=== PATIENT | female | born 1930 | race Hispanic/Latino ===

== ENCOUNTER 2016-09-09 15:50 | Emergency (ER) | payer MEDICARE, MEDICAID ==
[~2016-09-09] VITALS: Ht 157.5 cm; Wt 73.6 kg
[~2016-09-09 15:50] MED LIST: AMLO2.5T PO; AMLO5TAB2 PO; ASPI-973 PO; ATOR80TA77 PO; FAMO20TA4 PO; FUR20 PO; IRON SULFATE PO; LISI10TA PO; METO25TA99 PO; POTA10TA12 PO
[2016-09-09 16:04] VITALS: BP 121/54; PULSE 51; RESP 16; O2SAT 97
--- NOTE | 2016-09-09 16:35 | ED.REPORT ---
HPI-Extremity Problem Lower Date of Service Sep 09, 2016 ED Provider: Dr. Elvis Cano MD An 86 year old female with a history of aortic stenosis, anemia, hyperlipidemia , CAD, hypertension, CHF, GERD and arthritis presents to the ED complaining of right foot pain that began 3 days ago. Patient was seen at Urgent Care 2 days ago. The pain is exacerbated when the patient lays down and when she walks. Patient has been unable to sleep because of the pain. Associated symptoms include dizziness, headache and nausea. The pain medication has provided little relief. Nursing Notes Stated Complaint: FOOT PAIN/SEEN [facility] SUNDAY Chief Complaint: Extremity Trauma Nursing Notes Reviewed: Yes Allergies: Coded Allergies: No Known Allergies (Verified Allergy, Unknown, 02/06/16) Scheduled ([Iron Sulfate]) 325 MG PO BID Amlodipine (Amlodipine) 2.5 Mg Tablet 2.5 MG PO DAILY Amlodipine (Amlodipine) 5 Mg Tablet 2.5 MG PO BID Aspirin (Aspirin) 81 Mg Tablet 81 MG PO DAILY Atorvastatin Calcium (Atorvastatin Calcium) 80 Mg Tablet 0.5 TAB PO HS Famotidine (Famotidine) 20 Mg Tablet 20 MG PO DAILY Furosemide (Furosemide) 20 Mg Tab 20 MG PO DAILY Lisinopril (Lisinopril) 10 Mg Tablet 10 MG PO BID Metoprolol Succinate ER (Metoprolol Succinate ER) 25 Mg Tab.er.24h 25 MG PO BID Potassium Chloride ER (Potassium Chloride ER) 10 Meq Tablet 10 MEQ PO DAILY General Time Seen by MD: 16:34 Chief Complaint Foot injury right Hx Obtained From: Patient Arrived By: Walk-in Onset Occurred: 3 days ago Symptom Duration: Since onset Location: : Foot right Quality: Painful Severity: Current: Mild Severity: Maximum: Moderate Associated with: Reports: Nausea Pertinent Negative: Pt denies other symptoms Recent Healthcare: No recent hospitalization, Recent doctor visit Past Medical History Past Medical History Notes: Patient was admitted to [facility] from 01/13/2016 - 01/23/2016 for severe aortic stenosis, undergoing Tavr while admitted there. Secondary diagnoses included coronary artery disease, hypertension, GERD, acute diastolic heart failure, iron deficiency anemia, acute kidney injury, and hyponatremia Past Medical History 1. Aortic Stenosis status post TAVR. 2. Paroxysmal atrial fibrillation with RVR. 3. LBBB with symptomatic heart block. 4. Iron deficiency anemia. 5. Coronary artery disease. 6. Hypertension. 7. GERD. 8. Diastolic congestive heart failure. 9. Hyperlipidemia. 10. Osteoarthritis. 11. Recent cellulitis of her left upper arm. Reports: Congestive heart failure, Coronary artery disease, GERD, Hypertension Past Surgical History 1. Bladder suspension 2. TAVR at [facility]. 3. Cholecystectomy. 4. Right retinal reattachment. Smoking History Never Smoker Social History The patient lives with her daughter. She is and was 50 years. 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 Alcohol Use: Denies alcohol use Drug Use: Denies drug use Other Social History: Good social support, , Lives with children, Local resident Ambulatory Status Independent Review of Systems Constitutional: Denies: Chills, Fever Musculoskeletal: Reports: Joint pain (right foot ) Neurologic: Reports: Dizziness, Headache, Denies: Change LOC Complete sys rev & neg: except as marked. Respiratory: Denies: Shortness of breath Cardiovascular: Denies: Chest pain GI: Reports: Nausea, Denies: Abdominal pain, Vomiting Physical Exam Initial Vital Signs Vital Signs (First) Date Time Temp Pulse Resp B/P Pulse Ox O2 Delivery O2 Flow Rate FiO2 09/09/16 16:04 36.3 51 16 121/54 97 Room Air Initial VS: Reviewed Head / Eyes: Atraumatic, Normocephalic, PERRL Neck: Supple, Non-tender, Full range of motion Respiratory: Breath sounds normal, Clear to auscultation, No respiratory distress Upper Extremities: Vascular intact, Neuro intact, No swelling, No tenderness Skin: Warm, Dry, No cyanosis Neurologic: Alert, Oriented, Nonfocal Psychiatric: Mood/affect normal, Behavior normal, Normal thought content Lower Extremity / Pelvis / MS: Atraumatic, Neurologic intact, Vascular intact Ankle / Foot: Atraumatic, Neurologic intact Right Foot: Positive: Pulse dors ped decreased, Negative: Erythema present, Swelling present..., Warmth present ANKLE/FOOT: Medial aspect of big toe is removed with mild associated swelling General/Constitutional: Awake, Alert Cardiovascular: Heart rate NL, Regular rhythm, Heart sounds NL Interpretation & Diagnostics Lab Results Interpretation Result Diagram: 09/09/16 1750 Test 09/09/16 17:50 White Blood Count 6.2th/mm3 (3.8-10.1) Red Blood Count 3.53mil/mm3 (3.90-5.20) Hemoglobin 11.4g/dL (12.0-15.6) Hematocrit 33.7% (35.0-46.0) Mean Corpuscular Volume 95.5fL (81-100) Mean Corpuscular Hemoglobin 32.3pg (27.0-35.0) Mean Corpuscular Hemoglobin Concent 33.8% (32.0-37.0) Red Cell Distribution Width 12.1% (12.3-15.4) Platelet Count 173bil/L (150-400) Neutrophils (%) (Auto) 54.2% (40-74) Lymphocytes (%) (Auto) 33.4% (14-46) Monocytes (%) (Auto) 9.1% (4-12) Eosinophils (%) (Auto) 2.6% (0-5) Basophils (%) (Auto) 0.5% (0-3) Hold Mahmood Top Tube Received (Received) X-Ray Interpretation Xray Interpretation: IMPRESSION: Right foot osteoarthritis. Dictated by: Cornelio Crandall M.D. on 09/09/2016 at 17:48 X-Ray Ordered: Foot right Interpretation / Wet Read by: Interpret - Radiologist Re-Eval/Medical Decision Med Decision/Clinical Course Right foot pain of unclear etiology, currently awaiting lab evaluation as well as Doppler of the foot for diminished pulse. Care transferred to Dr. Dominguez Re-Evaluation/Progress : Time of Eval: 17:48 Patient Status: Condition improved Re-Evaluation/Progress Note: Patient is rechecked. She is informed of the intended treatment plan to obtain an US and X-ray of her foot. Counseled Regarding: Diagnosis Discharge & Departure Shift Change Sign-Out Patient Care Transferred: Yes Discussed Complaint(s): Yes Imaging Studies: Imaging discussed Response to Therapy: Improved Additonal Information: Dr. Dominguez Discharge Condition All VS Reviewed: Yes Condition: Stable Referrals: Ani Rico MD (PCP) Care Transferred to: Dr. Dominguez Care Transferred at: 18:00 Scribe Attestation Portions of this note were transcribed by Wilmer Ford. I, Dr. Cano personally performed the history, physical exam and medical decision-making; I reviewed and confirmed the accuracy of the information in the transcribed note. Signed by: Wilmer Ford, 09/09/16, 1800. copies to: Ain Rico MD, Timothy S DO Sep 09, 2016 16:35 WILMER FORD Sep 09, 2016 16:47
--- NOTE | 2016-09-09 17:50 | DRSVH ---
PROCEDURE: X-RAY RIGHT FOOT COMPLETE, MINIMUM THREE VIEWS ([id number]) INDICATIONS: foot pain TECHNIQUE: 3 views of the foot were acquired. COMPARISON: None. FINDINGS: Bones: No fractures or dislocations. No suspicious bony lesions. Diffuse interphalangeal and first MTP joint degeneration Soft tissues: No tibiotalar joint effusion. Achilles tendon appears normal. Vascular calcification s IMPRESSION: Right foot osteoarthritis. Dictated by: Cornelio Crandall M.D. on 09/09/2016 at 17:48 Approved by: Cornelio Crandall M.D. on 09/09/2016 at 17:48
[2016-09-09 18:06] LABS: BASOPHILS % (AUTO) 0.5 % (0-3); EOSINOPHILS % (AUTO) 2.6 % (0-5); MONOCYTES % (AUTO) 9.1 % (4-12); Mean Corpuscular Hemoglobin 32.3 pg (27.0-35.0); Mean Corpuscular Volume 95.5 fL (81-100); NEUTROPHILS % (AUTO) 54.2 % (40-74); Platelet Count 173 bil/L (150-400)
[2016-09-09 18:37] LABS: ERYTHROCYTE SEDIMENTATION RATE 31 mm/hr (0-40)
--- NOTE | 2016-09-09 18:47 | DRSVH ---
PROCEDURE: US DUPLEX DOPPLER UNILATERAL LEG ARTERIES, RIGHT INDICATIONS: foot pain, non palpable pulse in foot TECHNIQUE: Color and pulse Doppler interrogation was performed of the right lower extremity arterial system, wit h image documentation. COMPARISON: None. FINDINGS: Common femoral artery: 136 cm/sec, with biphasic flow. Deep femoral artery: 49 cm/sec, with biphasic flow. Proximal superficial femoral artery: 119 cm/sec, with monophasic flow. Mid superficial femoral artery: 83 cm/sec, with monophasic flow. Distal superficial femoral artery: 83 cm/sec, with monophasic flow. Popliteal artery: 58 cm/sec, with monophasic flow. Posterior tibial artery: 40 cm/sec, with monophasic flow. Anterior tibial artery/dorsalis pedis: 20 cm/sec, with monophasic flow. Mayers-scale imaging description: Scattered diffuse plaque IMPRESSION: No evidence for focal stenosis or occlusion. Dictated by: Cornelio Crandall M.D. on 09/09/2016 at 18:45 Approved by: Cornelio Crandall M.D. on 09/09/2016 at 18:45
[2016-09-09] MEDS ORDERED: oxyCODONE-Acetamin 5-325 mg Tablet PO ONE (19:20)
[2016-09-09 19:42] VITALS: BP 157/68; PULSE 59; RESP 18; O2SAT 99
== END 2016-09-09 19:42 | disposition home or self-care (01) ==
LOC: SED 15:50
DX: L03.115 Cellulitis of right lower limb (principal); M19.90 Unspecified osteoarthritis, unspecified site; I11.0 Hypertensive heart disease with heart failure; I50.9 Heart failure, unspecified; I25.10 Atherosclerotic heart disease of native coronary artery without angina pectoris; K21.9 Gastro-esophageal reflux disease without esophagitis; Z79.82 Long term (current) use of aspirin

== ENCOUNTER 2016-10-02 07:15 | Day surgery (SDC) | payer MEDICARE, MEDICAID ==
[~2016-10-02] VITALS: Ht 149.9 cm; Wt 68.0 kg
[2016-10-02] MEDS ORDERED: fentaNYL-PF 50 mCg/mL 2 mL Inj IVPUSH PRN (07:40)
[2016-10-02 08:35] VITALS: BP 146/57; PULSE 64; RESP 16; O2SAT 96
[2016-10-02 08:46] VITALS: BP 143/56; PULSE 60; RESP 16; O2SAT 96
[2016-10-02 08:56] VITALS: BP 151/57; PULSE 62; RESP 16; O2SAT 96
--- NOTE | 2016-10-02 10:09 | ENDO ---
[address] [address] ENDOSCOPY PROCEDURE PATIENT: AMADO SHETTY : 1930 MR#: [id number] ADMIT: 10/02/2016 JOB ID: [id number] PRIMARY PROVIDER: Ani Rico MD PROCEDURE: Esophagogastroduodenoscopy with biopsies. INDICATIONS: An 86-year-old female with nausea, early satiety of uncertain etiology. Bowels have normalized. EQUIPMENT: [id number]. SEDATION: 2 mg Versed, 50 mcg fentanyl. COMPLICATIONS: None identified. PROCEDURE INFORMATION: After the risks and benefits were explained, written and verbal informed consent was obtained. The patient was brought into the endoscopy suite and placed into the left lateral decubitus position. Sedation was achieved using the above-stated medications with the addition of oxygen via nasal cannula. The scope was introduced into the mouth through the bite block, and advanced under direct visualization to the level of the second portion of the duodenum. The scope was slowly withdrawn to carefully examine the mucosa for any defects or lesions. Retroflexed views were accomplished in the stomach. The stomach was decompressed, the scope removed from the patient who tolerated the procedure well. FINDINGS: 1. Duodenum: No pathology from the bulb through to the second portion. 2. Stomach: No mass lesions. No ulcers. No outlet obstruction. Mild diffuse gastropathy was seen and a biopsy was taken for exclusion of Helicobacter pylori or other histopathology. Retroflexed views of the LES were otherwise unremarkable. 3. Esophagus: The GE junction was at approximately 33 cm from the incisors. The patient had evidence of LA grade A erosive esophagitis. There is a slight irregularity consistent with inflammation at the level of the gastric cardia and a separate biopsy was taken from cardia mucosa. Otherwise, the esophageal mucosa appeared unremarkable. ENDOSCOPIC DIAGNOSES: 1. Hiatal hernia. 2. LA grade A erosive esophagitis. 3. Gastric cardia inflammation. 4. Gastropathy. RECOMMENDATIONS: 1. Await histopathology. 2. If Helicobacter is found, it will need to be eradicated with standard triple therapy. 3. The patient will be encouraged to restart some form of antiacid therapy to see if this alleviates symptoms.
--- NOTE | 2016-10-03 13:23 | PATH ---
SURGICAL PATHOLOGY Attending Physician:Shonda Pack CASE STATUS: Signed Out PATIENT NAME: AMADO SHETTY PID: [id number] : 1930 DATE COLLECTED:10/02/2016 20:16 SPECIMEN: 1: Gastric, Biopsy 2: Gastric, Biopsy CLINICAL HISTORY: NAUSEA 1. GASTRIC 2. CARDIA FINAL DIAGNOSIS: 1. Gastric Biopsy: Moderate chronic gastritis involving fundic mucosa. Immunohistochemistry for Helicobacter pending, to be reported by addendum. Negative for intestinal metaplasia. Negative for dysplasia and malignancy. 2. Biopsy of Cardia: Fragment of gastric cardia-type mucosa and squamous epithelium with chronic inflammation, negative for specialized metaplasia of Moreno's type esophagus. Negative for dysplasia and malignancy. Eosinophils are not increased. ICD10 K29.70 GROSS DESCRIPTION: The specimen is received in two formalin filled containers labeled with the patient's name. 1). The specimen is sublabeled "gastric" and consists of a 0.3 x 0.3 x 0.2 CM portion of tissue which is entirely submitted in cassette 1A. 2). The specimen is sublabeled "cardia" and consists of a 0.2 x 0.2 x 0.2 CM portion of tissue which is entirely submitted in cassette 2A. 10/02/2016 [facility] ICD-9 CODES: CPT CODES: 1: 61737, 31455 2: 82746 PROCEDURE/ADDENDA: Immunohistochemistry SPI Interpretation 1. Gastric Biopsy: Negative for Helicobacter pylori by immunohistochemistry. Results-Comments {Not Entered} Electronically Signed Out Mayank Yen MD Electronically Signed Out Mayank Yen MD [facility] [address], [place] [address] Technical component performed at [facility], [facility] [address], [place], [address]
== END 2016-10-02 23:59 | disposition home or self-care (01) ==
LOC: END 07:15
PROVIDERS: ATTEND Internal Medicine Gastroenterology
DX: R11.0 Nausea (principal); K22.70 Barrett's esophagus without dysplasia; K44.9 Diaphragmatic hernia without obstruction or gangrene; K29.50 Unspecified chronic gastritis without bleeding; I07.1 Rheumatic tricuspid insufficiency; I25.10 Atherosclerotic heart disease of native coronary artery without angina pectoris; I10 Essential (primary) hypertension; Z95.4 Presence of other heart-valve replacement
CPT/HCPCS: 43239; 88305; 88342; G0500; J2250; J3010; J7030

== ENCOUNTER 2017-02-25 01:59 | Inpatient (IN) | payer MEDICARE, MEDICAID ==
[~2017-02-25] VITALS: Ht 157.5 cm; Wt 75.6 kg
[2017-02-25] VITALS (13 sets, daily range): BP systolic 114–158; BP diastolic 43–78; PULSE 58–78; RESP 16–23; O2SAT 93–99
--- NOTE | 2017-02-25 03:12 | ED.REPORT ---
HPI-General Illness Date of Service Feb 25, 2017 ED Provider: Roe Chowdhury MD An 86 year old female with a history of aortic stenosis, CAD, hypertension and CHF presents to the ED complaining of abdominal pain. The pt was feeling well when she went to sleep this evening, but woke tonight with "spinning" dizziness , nausea, vomiting, diarrhea, LUQ pain and low back pain. She had taken her normal medications in the evening, and took two ibuprofen at onset without significant relief. Nursing Notes Stated Complaint: VOMITING,DIZZINESS,HI BLOOD PRESSURE Chief Complaint: General Complaint Nursing Notes Reviewed: Yes Allergies: Coded Allergies: No Known Allergies (Verified Allergy, Unknown, 02/06/16) Scheduled Amlodipine (Amlodipine) 5 Mg Tablet 5 MG PO BID Aspirin (Aspirin) 81 Mg Tablet 81 MG PO DAILY Atorvastatin Calcium (Atorvastatin Calcium) 80 Mg Tablet 0.5 TAB PO HS Furosemide (Furosemide) 20 Mg Tab 20 MG PO DAILY Lisinopril (Lisinopril) 10 Mg Tablet 10 MG PO BID Metoprolol Succinate ER (Metoprolol Succinate ER) 25 Mg Tab.er.24h 25 MG PO BID Pantoprazole DR (Pantoprazole DR) 20 Mg Tablet.dr 20 MG PO DAILY Pnv No.122/Iron/Folic Acid ( Multi Tablet) 27 Mg Iron-800 Mcg Tablet 1 EACH PO DAILY Potassium Chloride ER (Potassium Chloride ER) 10 Meq Tablet 10 MEQ PO DAILY Scheduled PRN Diclofenac Gel (Diclofenac Gel) 100 Gm Tube 1 APPLIC TOPICAL BID PRN PRN For Pain Nitroglycerin SL (Nitroglycerin SL) 0.4 Mg Tab.subl 0.4 MG SL DIRECTED PRN PRN For Chest Pain General Time Seen by MD: 03:12 Chief Complaint Abdominal pain Hx Obtained From: Patient, Other family... Arrived By: Walk-in Sudden in Onset?: No Onset Occurred: 1 - 4 hours ago Symptom Duration: Since onset Recent Healthcare: No recent hospitalization, Recent doctor visit Similar Sx Previous: No Past Medical History Past Medical History Notes: Patient was admitted to [facility] from 01/13/2016 - 01/23/2016 for severe aortic stenosis, undergoing Tavr while admitted there. Secondary diagnoses included coronary artery disease, hypertension, GERD, acute diastolic heart failure, iron deficiency anemia, acute kidney injury, and hyponatremia Past Medical History 1. Aortic Stenosis status post TAVR. 2. Paroxysmal atrial fibrillation with RVR. 3. LBBB with symptomatic heart block. 4. Iron deficiency anemia. 5. Coronary artery disease. 6. Hypertension. 7. GERD. 8. Diastolic congestive heart failure. 9. Hyperlipidemia. 10. Osteoarthritis. 11. Recent cellulitis of her left upper arm. Reports: Congestive heart failure, Hypertension Past Surgical History 1. Bladder suspension 2. TAVR at [facility]. 3. Cholecystectomy. 4. Right retinal reattachment. Smoking History Never Smoker Social History The patient lives with her daughter. She is and was 50 years. 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 Alcohol Use: Denies alcohol use Drug Use: Denies drug use Other Social History: Good social support, , Lives with children, Local resident Ambulatory Status Independent Review of Systems Full Review of Systems Respiratory: Denies: Shortness of breath Cardiovascular: Denies: Chest pain GI: Reports: Abdominal pain, Diarrhea, Nausea, Vomiting Musculoskeletal: Reports: Back pain Skin: Denies Rash Neurologic: Reports: Dizziness Complete sys rev & neg: except as marked. Physical Exam Vital Signs Vital Signs Date Time Temp Pulse Resp B/P Pulse Ox O2 Delivery O2 Flow Rate FiO2 02/25/17 05:43 63 22 128/46 94 Room Air 02/25/17 05:05 70 18 137/47 97 Room Air 02/25/17 04:08 58 16 129/45 95 Room Air 02/25/17 02:05 35.8 64 18 144/78 98 Room Air Initial VS: Reviewed General/Constitutional: Awake, Alert Head / Eyes: Atraumatic, Normocephalic, PERRL, EOMI ENT: Atraumatic, Airway patent, Mucous membranes moist Neck: Atraumatic, Supple, Full range of motion Respiratory / Chest: Atraumatic, Breath sounds NL, Breath sounds = bilat, No respiratory distress Cardiovascular: Heart rate NL, Regular rhythm, Heart sounds NL Abdomen: Atraumatic, Soft LUQ tenderness Back: Atraumatic, Full range of motion Upper Extremities Upper Extremity / MS: Atraumatic, Full range of motion Lower Extremity / Pelvis / MS: Atraumatic, Full range of motion Skin: Atraumatic, Color NL, No rash, Warm, Dry Neurologic: Oriented X3, Speech NL, No motor deficits, No sensory deficits Psychiatric: Affect NL, Mood NL Interpretation & Diagnostics Lab Results Interpretation Result Diagram: 02/25/17 0317 02/25/17 1200 Test 02/25/17 03:17 02/25/17 03:50 02/25/17 04:00 02/25/17 04:07 White Blood Count 9.5th/mm3 (3.8-10.1) Red Blood Count 3.80mil/mm3 (3.90-5.20) Hemoglobin 12.3g/dL (12.0-15.6) Hematocrit 36.1% (35.0-46.0) Mean Corpuscular Volume 95.0fL (81-100) Mean Corpuscular Hemoglobin 32.4pg (27.0-35.0) Mean Corpuscular Hemoglobin Concent 34.1% (32.0-37.0) Red Cell Distribution Width 12.6% (12.3-15.4) Platelet Count 191bil/L (150-400) Neutrophils (%) (Auto) 81.8% (40-74) Lymphocytes (%) (Auto) 12.8% (14-46) Monocytes (%) (Auto) 4.3% (4-12) Eosinophils (%) (Auto) 0.7% (0-5) Basophils (%) (Auto) 0.3% (0-3) Total Bilirubin 0.4mg/dL (0.0-1.2) Aspartate Amino Transf (AST/SGOT) 43U/L (0-50) Alanine Aminotransferase (ALT/SGPT) 27U/L (0-32) Alkaline Phosphatase 86U/L (25-165) Total Protein 8.0g/dL (6.4-8.4) Albumin 4.1g/dL (3.4-5.0) Lipase 50U/L (13-60) Prothrombin Time 11.0sec (8.1-12.5) Prothromb Time International Ratio 1.03ratio Lactic Acid Level 1.3mmol/L (0.4-2.0) Hold Mahmood Top Tube Received (Received) Urine Color Yellow (YELLOW) Urine Appearance Clear (CLEAR,HAZY) Urine pH 5.5 (5.0-8.0) Urine Specific [place] 1.020 (1.003-1.035) Urine Protein 30mg/dL (NEG,TRACE) Urine Glucose (UA) Negativemg/dL (NEGATIVE) Urine Ketones Negativemg/dL (NEGATIVE) Urine Occult Blood Negative (NEGATIVE) Urine Nitrite Negative (NEGATIVE) Urine Bilirubin Negative (NEGATIVE) Urine Urobilinogen Normalmg/dL (NORMAL) Urine Leukocyte Esterase Negative (NEGATIVE) Urine RBC 3-10/hpf (0-2) Urine WBC 0-5/hpf (0-5) Urine Epithelial Cells Occasional/hpf (NONE-MOD) Urine Crystals None seen (NONE SEEN) Urine Bacteria Moderate/hpf (NONE-FEW) Urine Hyaline Casts None/lpf (NONE) Urine Granular Casts None seen (NONE SEEN) Urine Waxy Casts None seen (NONE SEEN) Urine Red Blood Cell Casts None seen (NONE SEEN) Urine White Blood Cell Casts None seen (NONE SEEN) Urine Mucus None seen (None Seen) Urine Trichomonas None seen (NONE SEEN) Urine Yeast None (NONE SEEN) Urinalysis Comment None Urine Culture Reflexed Indicated ECG Interpretation ECG Interpretation: normal sinus rhythm with a rate of 57 incomplete LBBB LVH with secondary repolarization abnormality anterior Q waves, possibly due to LVH Time: 03:52 Interpreted by: ED physician ECG Interpretation: normal sinus rhythm with a rate of 69 LBBB Time: 04:30 Interpreted by: ED physician CT Abd / Pelvis Interpretation CONCLUSION: No acute intra-abdominal abnormality. Minimal sigmoid diverticulosis, without evidence of diverticulitis. Small hiatal hernia. No evidence for small bowel obstruction. Interpretation / Wet Read by: Interpret - Radiologist Re-Eval/Medical Decision Med Decision/Clinical Course 86-year-old status post TAVR, with intermittent congestive heart failure presents with vertigo and left upper quadrant abdominal pain. This is more fluid over time and his chest pain, although her troponin is negative and her EKG is unchanged over two hour period. She remains symptomatic and a very vague historian and difficult to characterize what is probably a moment. Her labs are unrevealing. ET of her abdomen is unremarkable. No evidence of pulmonary edema on the chest portions visualized. She is admitted now for further evaluation and management to completely rule protocol and continued to try to achieve symptomatic relief. Source of Hx: Old records Counseled Regarding: Diagnosis, Lab results, Need for follow-up, When/why to return to ED Discharge & Departure Primary Impression: Chest pain Chest pain type: unspecified Qualified Code: R07.9 - Chest pain, unspecified Additional Impressions: Abdominal pain Abdominal location: left upper quadrant Qualified Code: R10.12 - Left upper quadrant pain Vertigo Disposition: ADMITTED TO HOSPITAL Discharge Condition All VS Reviewed: Yes Condition: Stable Referrals: Ani Rico MD (PCP) Scribe Attestation Portions of this note were transcribed by Sea Altamirano. Dr. Trenton Skaggs personally performed the history, physical exam and medical decision-making; I reviewed and confirmed the accuracy of the information in the transcribed note. Signed by: Kenrick Arce, 02/25/2017 and 0604. copies to: Ani Rico MD, Christopher W MD Feb 25, 2017 03:12 SEA ALTAMIRANO Feb 25, 2017 03:24 ECG Interpretation ECG Interpretation: normal sinus rhythm with a rate of 57 incomplete LBBB LVH with secondary repolarization abnormality anterior Q waves, possibly due to LVH Time: 03:52 Interpreted by: ED physician ECG Interpretation: normal sinus rhythm with a rate of 69 LBBB Time: 04:30 Interpreted by: ED physician CT Abd / Pelvis Interpretation CONCLUSION: No acute intra-abdominal abnormality. Minimal sigmoid diverticulosis, without evidence of diverticulitis. Small hiatal hernia. No evidence for small bowel obstruction. Interpretation / Wet Read by: Interpret - Radiologist Re-Eval/Medical Decision Source of Hx: Old records Counseled Regarding: Diagnosis, Lab results, Need for follow-up, When/why to return to ED Discharge & Departure Disposition: Home Discharge Condition All VS Reviewed: Yes Condition: Stable Referrals: Ani Rico MD (PCP) Scribhugo Attestation Portions of this note were transcribed by Sea Altamirano. Dr. Trneton Skaggs personally performed the history, physical exam and medical decision-making; I reviewed and confirmed the accuracy of the information in the transcribed note. Signed by: Kenrick Arce, 02/25/2017 and 06. copies to: Ani Rico MD, Christopher W MD Feb 25, 2017 03:12 SEA ALTAMIRANO Feb 25, 2017 03:24
[2017-02-25] MEDS ORDERED: 0.9% Sodium Chloride 1,000 ML IV ONE (03:18)
[2017-02-25] MEDS ORDERED: Ondansetron 2 mg/mL 2 mL Inj IVPUSH ONE (03:20)
[2017-02-25] MEDS ORDERED: Pantoprazole 4 mg/mL 10 mL Inj IVPUSH ONE (03:20)
[2017-02-25 03:28] LABS: BASOPHILS % (AUTO) 0.3 % (0-3); EOSINOPHILS % (AUTO) 0.7 % (0-5); MONOCYTES % (AUTO) 4.3 % (4-12); Mean Corpuscular Hemoglobin 32.4 pg (27.0-35.0); NEUTROPHILS % (AUTO) 81.8 % (40-74); Platelet Count 191 bil/L (150-400)
[2017-02-25] MEDS: HYDROmorphone 0.5 mg/0.5 mL iSecure Syringe IVPUSH PRN ×2 (03:49→05:45)
[2017-02-25 03:53] LABS: Magnesium 2.4 mg/dL (1.6-2.6)
[2017-02-25 04:20] LABS: INR 1.03 ratio
[2017-02-25 04:21] LABS: APPEARANCE,URINE CLEAR (CLEAR,HAZY); COLOR,URINE YELLOW (YELLOW); OCCULT BLOOD,URINE NEGATIVE (NEGATIVE); PH,URINE 5.5 (5.0-8.0); UROBILINOGEN,URINE NORMAL (NORMAL)
--- NOTE | 2017-02-25 09:29 | DRSVH ---
PROCEDURE: CT ABDOMEN AND PELVIS WITH CONTRAST ([id number]) INDICATIONS: Left upper quadrant pain. TECHNIQUE: After the administration of intravenous contrast, 5 mm thick sections acquired from the diaphragm to the symphysis. 5 mm coronal and sagittal reformats were acquired. For radiation dose reduction, the following was used: automated exposure control, adjustment of mA and/or kV according to patient davidz e. COMPARISON: [facility], CT, CT CHEST WO CON, 05/10/2016, 8:11. [facility], C R, XR CHEST 1VW, 02/25/2017, 5:46. [facility], CT, ABD/PELVIS W/CON (PNL), 07/25/2010 , 16:42. FINDINGS: Image quality: Excellent. ABDOMEN: Lung bases: There is a 1.6 cm nodular density in the right cardiophrenic angle. There are scars and a telectasis in the right middle lobe and lingula. Heart size is normal. There is a prosthetic aortic valve. A small hiatal hernia is present Solid organs: Liver and spleen are normal in size and enhancement. Gallbladder is absent, likely espinoza rgically removed. There is mild intrahepatic and extrahepatic biliary dilation. Pancreas enhances no rmally. No adrenal nodules. Kidneys demonstrate normal size and enhancement, without hydronephrosis . A small subcentimeter cortical nodule in the left kidney is most likely a cyst. Possible parapelvi c cyst(s) in right kidney. Peritoneum and bowel: Bowel loops demonstrate normal wall thickness and caliber. No free fluid or a ir. Nodes and vessels: No retroperitoneal or mesenteric adenopathy by size criteria. Aorta and inferior vena cava are normal in size. Miscellaneous: No ventral hernias. PELVIS: Genitourinary: Bladder wall thickness is normal. Miscellaneous: No inguinal hernias or adenopathy. Bones: No suspicious bony lesions. No vertebral body compression fractures. Scoliosis and degenera tive changes in lower thoracic and lumbar spine. IMPRESSION: 1. No imaging findings to explain left upper quadrant pain. 2. Small hiatal hernia. 3. Mild intrahepatic and extrahepatic biliary dilation may be related to cholecystectomy. Please tariq elate with serum bilirubin. 4. There is a 1.6 cm nodular density in the right cardiophrenic angle. Although this could be caused by round atelectasis, a mass cannot be excluded. Recommend short interval followup CT in 3 months. Fleischner Society criteria for SOLID lung nodule followup. Nodule size (mm)Low-risk patientHigh-risk [id number] follow-up neededFollow-up at 12 mo; if no maldonado e, no further follow-up>9-2Vibthj-ds CT at 12 mo; if no change, no further follow-up needed.Initial f ollow-up CT at 6-12 mo, then 18-24 mo if no change. >6-8Initial follow-up CT at 6-12 mo, then 18-24 mo if no change. Initial follow-up CT at 3-6 mo, then 9-12 mo and 24 mo if no change. >8Follow-up CT at 3, 9, 24 mo. Or PET and/or biopsy.Same as for low-risk pts. Fleischner Society criteria for SUB-SOLID lung nodule followup. Solitary pure ground-glass nodules5 mm or lessNo followup needed. >5 mm3 mo follow-up CT to confirm persistence. Then annual CT for 3 years. Part-solid nodules3 mo follow-up CT to confirm persistence . If persistent with solid component <5 mm, annual CT for at least 3 years. If solid component is 5 mm or more, biopsy or surgical resection. Consider PET-CT for lesions > 10 mm. Multiple sub-solid nodulesPure ground glass nodules [address] at 2 and 4 years. Pure ground glass nodules >5 mm without dominant lesion. [address] to confirm persistence, then annual followup CT for at least 3 years. Dominant nodule(s) with part-solid or solid component. [address] to confirm persistence. If persistent, consider biopsy or surgical resection, mayank if lesions have >5 m m solid component. Dictated by: Vannessa Mack M.D. on 02/25/2017 at 9:15 Approved by: Vannessa Mack M.D. on 02/25/2017 at 9:27
[2017-02-25] MEDS ORDERED: AMLO5TAB2 PO ×2 (10:14→10:18)
[2017-02-25] MEDS ORDERED: PNV1TABL81 PO (10:18)
[2017-02-25] MEDS ORDERED: DICL100G26 TOPICAL (10:22)
[2017-02-25] MEDS ORDERED: NITR0.4T6 SL (10:23)
[2017-02-25] MEDS ORDERED: PANT20TA2 PO (10:25)
--- NOTE | 2017-02-25 10:45 | NUR ---
ADMIT Patient is Yi speaking only. Denies chest pain at this time. Complains of nausea/vomiting. Zofran was administered in the ED. Patient is also complaining of dizziness. NPO at this time. Tele placed on. Dr. Vazquez made aware RE: Patients arrival to he unit. Unable to orient at this time due to retching. Daughter is at the bedside.
--- NOTE | 2017-02-25 10:56 | NUR ---
CARDIAC/MD NOTIFICATION Patient is on remote tele. Per television camera operator patient had a 6 sec asystolic pause; ? complete heart block. Patient is complaining of being dizzy. Denies chest pain. Actively vomiting during at the bed during that time. Dr. Vazquez was made aware. Per television camera operator patients HR dropped to 20's for 30 sec and is now up to the upper 90's. Current rate is sinus with IVCD. Dr. Vazquez made aware. New orders to start IVF: NS at 50 ml/ hr. and to transfer patient to [facility] with pacer leads to be attached. STAT EKG done at this time. MD is aware of results and notified RE: Drop in heart rate. ruching machine operator made aware RE: Patient to transfer to [facility]. Patient's daughter was made aware of this transfer and is agreeable to this.
[2017-02-25] MEDS: 0.9% Sodium Chloride 1,000 ML IV SCH ×3 (11:04→18:27)
[2017-02-25] MEDS ORDERED: Senna-Docusate 8.6-50 mg Tablet PO PRN (11:05)
[2017-02-25] MEDS ORDERED: Renal Dosing Per Pharmacist XX ONE (11:05)
[2017-02-25] MEDS ORDERED: Alum-Mag Hydrox-Simeth 30 mL Suspension PO PRN (11:05)
[2017-02-25] MEDS ORDERED: Atropine 1 mg/10 mL (Code) Syringe IVPUSH PRN (11:05)
[2017-02-25] MEDS ORDERED: Polyethylene Glycol (PEG) 17 Gm Powder PO PRN (11:05)
--- NOTE | 2017-02-25 11:17 | DRSVH ---
PROCEDURE: X-RAY CHEST ONE VIEW ([id number]) INDICATIONS: 86 year-old woman with chest pain. TECHNIQUE: One view of the chest was acquired. COMPARISON: [facility], CT, CT ABD PELVIS W CON, 02/25/2017, 4:19. [facility], CT, CT CHEST WO CON, 05/10/2016, 8:11. FINDINGS: Surgical changes and devices: Prosthetic aortic valve/stent. Lungs and pleura: Bilateral reticular nodular infiltrates. No pleural effusions or pneumothorax. Sylvia ngs are clear. Mediastinum: Mediastinal contours appear normal. Heart size is mildly increased. Bones and chest wall: No suspicious bony lesions. Overlying soft tissues appear unremarkable. IMPRESSION: Bilateral reticular nodular infiltrates suspicious for pneumonia. Recommend clinical tariq elation. Dictated by: Vannessa Mack M.D. on 02/25/2017 at 11:13 Approved by: Vannessa Mack M.D. on 02/25/2017 at 11:15
--- NOTE | 2017-02-25 11:50 | NUR ---
Telemetry Update: Asystolic Pauses Patient has been Sinus Rhythm 60-70s with an IVCD. At 10:30, patient had a 5.94s pause. At 10:44, patient had a bradycardic episode in the mid 20s. While reviewing the ER tele data with Dr. Vazquez, two asystolic pauses were found: 15 seconds at 08:57 and 20 seconds at 09:24. STEVE mcgovern.
--- NOTE | 2017-02-25 11:57 | NUR ---
TRANSFER TO [facility] Patient is on room air. NS ongoing at 50 ml/hr. NPO. Resting comfortably in bed prior to transfer. Report given to Aundrea Hood RN. Transferred to [facility] via a hospital bed. Daughter is aware. Addendum: 02/25/17 at 1201 by FOUZIA KINGSLEY RN *Unable to do a full skin assessment due to cardiac issues. Gloria was and aware of this.
[2017-02-25] MEDS: Ondansetron 2 mg/mL 2 mL Inj IVPUSH PRN ×2 (12:13→13:00)
[2017-02-25 13:03] LABS: Creatine Kinase 43 U/L (21-215)
[2017-02-25 13:06] LABS: Magnesium 2.4 mg/dL (1.6-2.6)
[2017-02-25] MEDS ORDERED: Furosemide 10 mg/mL 4 mL Inj IVPUSH ONE (14:55)
[2017-02-25] MEDS ORDERED: MetoCLOpramide 5 mg/mL 2 mL Inj IVPUSH PRN (15:00)
[2017-02-25] MEDS: Sodium Chloride LOK Flush 10 mL Syringe IVFLUSH SCH (16:01)
--- NOTE | 2017-02-25 16:08 | CONS ---
[address] [address] CONSULTATION REPORT PATIENT: AMADO SHETTY : 1930 MR#: [id number] ADMIT: 02/25/2017 JOB ID: [id number] DATE OF SERVICE: 02/25/2017 CARDIOLOGY CONSULTATION: HISTORY OF PRESENT ILLNESS: The patient is an 86-year-old female who presented to the emergency department early this morning with symptoms of waking up with severe vertigo associated with nausea, vomiting, diarrhea, and left upper quadrant and low back pain. She was brought to the emergency department for evaluation, denying any symptoms of chest discomfort or dyspnea. Initially her blood pressure was normal at 144/78 with a pulse of 64. The patient's 12-lead EKG showed evidence of left bundle branch block with normal sinus rhythm at a rate of [address] scan of the abdomen and pelvis suggested some evidence of diverticulosis without evidence of diverticulitis. The patient was admitted to the hospital on remote tele and was found around 10:30 this morning to have intermittent episodes of prolonged sinus pauses with transient sinus bradycardia down into the 20s and 30s. According to the nurses' notes this occurred while the patient was actively vomiting. Review of the patient's record in the emergency department showed several episodes of markedly prolonged sinus pauses as well, though the patient was never syncopal or obviously nearly syncopal. She was moved to the telemetry unit and I was consulted by Dr. Vazquez to assist with her evaluation and management. When I am seeing her this afternoon she has had no recurrent spells other than this morning. She has been in normal sinus rhythm with rates in the 60s with blood pressures ranging in the 130-160 range. She is lying quietly with her eyes closed with an emesis receptacle at the bedside, complaining of some residual very mild vertigo and nausea. The daughter helps with her interpretation and suggests that her appetite was poor yesterday. Her abdominal discomfort apparently has resolved at this time. This patient's cardiac history dates back to when she presented in January 2016 with symptoms of intrascapular back discomfort with radiation to her neck associated with exertional dyspnea and she was found to have evidence of critical aortic stenosis. Cardiac catheterization was performed at that time. She had a baseline left bundle branch block and with insertion of the Emery-Darrell catheter she developed transient third degree heart block which can occur just simply related to pressure on the right bundle from the Emery-Darrell catheter. A temporary transvenous pacemaker ultimately was placed and coronary angiography performed which demonstrated mild nonobstructive disease involving the proximal circumflex, no significant disease involving the LAD or left main vessel, and a moderate-sized right coronary artery with a tubular 60% stenosis proximally. She was transferred to [place] and underwent a TAVR procedure in February of last year. We should also note that at the time of her procedure she did have evidence of significant mitral regurgitation as well and her echocardiogram also suggested moderate concentric left ventricular hypertrophy with normal ventricular function. She presented again with recurrent chest discomfort a month later to the hospital and was found to have evidence of perhaps a ruptured tricuspid chordae that was initially considered possibly a valvular vegetation. Her echocardiogram at that point confirmed the presence of severe mitral regurgitation and moderately severe pulmonary hypertension with pulmonary artery pressures in the 65-70 range. During my history today, the patient states that for the past week she has had similar symptoms of back discomfort with radiation to the neck associated with dyspnea similar to the symptoms that she had before her aortic valve procedure. Symptoms are somewhat atypical in that they are nonexertional and last for 15-20 minutes. She also describes intermittent spells which are quite transient but seem to be associated with possible near syncope or transient neurologic dysfunction of some sort. Her history is a little challenging. Currently she is resting comfortably without symptoms of chest discomfort or dyspnea. PAST MEDICAL HISTORY: Otherwise includes hypertension treated with lisinopril and amlodipine. She does not have a history of diabetes. SOCIAL HISTORY: The patient is and lives with her daughter. She is a nonsmoker and does not drink alcohol. It is clear that she has had functional class 3 exertional dyspnea which has worsened since her TAVR procedure a year ago. She used to be able to walk around the store with her daughters, but she can no longer do that, and gets dyspneic just walking from one room to the next in her home. She also describes symptoms possibly of mild orthopnea, though her history is challenging. REVIEW OF SYSTEMS: Otherwise notable for the absence of any bleeding issues. She has had symptoms of diarrhea this morning but no other significant gastrointestinal complaints. She denies a history of obvious syncope. She does admit to occasional lower extremity edema. PHYSICAL EXAMINATION: Shows a pleasant 86-year-old female, 5 feet 2 inches tall, 166 pounds. Once again she is in sinus rhythm with a left bundle branch block and a heart rate in the 60s and 70s. She is afebrile. Blood pressure has been borderline elevated with a widened pulse pressure. O2 saturation is normal on room air. HEENT examination is unremarkable. She does have moderate jugular venous distention to the angle of the jaw at about 60 degrees. Carotid upstroke is reduced in amplitude but with a relatively good upstroke velocity. I do not hear a carotid bruit, though there is a transmitted murmur from her aortic valve audible in the left carotid. She has a grade 3/6 mid-peaking systolic ejection murmur along the right and left sternal borders and in the suprasternal notch. She has a moderately prominent holosystolic murmur audible at the left lower sternal border and a prominent grade 3/6 holosystolic murmur of mitral insufficiency audible at the apex. S2 is paradoxically split. Abdomen is soft and nontender. Bowel tones are normal. No obvious aortic enlargement or bruit. Distal extremity pulses are normal. She has trace to 1+ lower extremity edema. No clear-cut musculoskeletal abnormalities or neurologic findings. LABORATORY DATA: Notable for normal CBC. Chemistries are notable for normal troponins, blood sugar slightly elevated, renal function and electrolytes normal. Liver function tests normal, as well, including a normal lipase. BNP is notably increased to 2028. IMAGING: Shows a chest x-ray which to me shows evidence of moderate pulmonary congestion. Her TAVR valve is well seen. Abdominal CT scan shows moderate distal aortic and femoral calcific atherosclerosis. IMPRESSION: 1. Intermittent marked sinus pauses: These are clearly vagal mediated, related to her acute gastrointestinal symptoms with vomiting. She clearly has some degree of sinus isa and AV isa disease. At this point, I would continue simply to observe her on telemetry and discontinue her beta hien therapy and treat her for her vertigo and nausea. 2. Valvular heart disease: This patient's TAVR likely is normal. She does, however, have significant or severe mitral regurgitation and I think she is symptomatic from her mitral insufficiency with functional class three dyspnea and current pulmonary congestion. She also has moderately severe pulmonary hypertension, which may be all related to passive pulmonary congestion related to her aortic and mitral valve disease. Finally, she does have underlying ischemic heart disease with moderate nonobstructive coronary disease identified a year ago. Her recurrent angina-like symptoms are notable and one would wonder if her intermittent sinus pauses might be aggravated or contributed to by sinus node ischemia related to her proximal right coronary artery disease. RECOMMENDATIONS: Dr. Vazquez has already discontinued her metoprolol. I would treat her probably with 40 mg of IV Lasix now and then change her perhaps to 40-80 mg of p.o. Lasix daily for her symptomatic pulmonary congestion. I think it is reasonable to discontinue amlodipine and simply increase her lisinopril, perhaps to 20 mg b.i.d., in an attempt to reduce her afterload and improve her mitral regurgitation. If she has recurrent persistent symptomatic bradycardia associated with nausea and vomiting, then intravenous atropine should be effective if needed. Generally these episodes have been transient enough and minimally symptomatic, and resolve once the nausea and vomiting resolve. If she has no further symptomatic bradyarrhythmias unrelated to her vomiting, then I would consider an outpatient one week Ziopatch to follow up on her intermittent symptoms of possible near syncope to exclude intermittent symptomatic bradyarrhythmias. Finally I think it will be important that she be followed in our clinic by Dr. Cueva and he can further investigate the need for intervention for her severe mitral regurgitation and possible underlying ischemic heart disease. I will ask my partner, who will be taking over the service tomorrow, to follow up with her care while she is here in the hospital.
--- NOTE | 2017-02-25 17:26 | HP ---
[address] [address] HISTORY AND PHYSICAL PATIENT: AMADO SHETTY : 1930 MR#: [id number] ADMIT: 02/25/2017 JOB ID: [id number] HISTORY OF PRESENT ILLNESS: This is an 86-year-old female admitted for chest pain to rule out acute coronary syndrome. Upon arrival to the medical michel she was noted to have a 6 second sinus pause which prompted review of prior tracings from the previous hour in the emergency department. There she was noted to have a 15 second pause and also a 20 second pause. Somehow the alarms were not audible or noted. With this particular 6 second pause she was very nauseated and retching. She has also been on metoprolol and amlodipine, so has some reason to have an increased vagal tone. She has a history of TAVR done last year in [place] and apparently had some intermittent symptoms without any clear complication or reason since then. Her daughter is not completely clear on what transpired, but apparently there has been some back and forth with visits to Dr. Cueva and also visits back to the traveling secretary who placed the TAVR in [place]. She has no known history of prior bradycardia or sinus pauses. She has not been syncopal through any of these episodes, even the prolonged ones in the emergency department. The sinus pauses appeared to be reliably traced and are not in any way suspected to be artifactual. She has been discussed with Cardiology and will be transferred emergently to the progressive/critical care unit for closer monitoring and potential intervention. Pacer pads have been applied, and of course the rate slowing agents have not been given. Additional cardiac factors are a left bundle branch block and paroxysmal atrial fibrillation with rapid ventricular response. She also has a history of known coronary artery disease. Her presenting complaint when she woke her daughter up last night was that she was dizzy and having left upper quadrant abdominal pain along with substernal chest pain intermittently and varying in location. REVIEW OF SYSTEMS: Positive for chest pain, abdominal pain, dizziness, and vomiting. Negative for coughing, fevers, chills, sweats, diarrhea, seizures, rashes, dysuria, bleeding, headache, sore throat, depression, new allergies, shortness of breath. SOCIAL HISTORY: Dr. Cueva is her proj mgr. Dr. Rico is her primary care. She has never smoked, used illicit drugs, or drank alcohol. Additional social history: She lives with her daughter and is . She had 10 children. FAMILY HISTORY: Both of her parents of heart disease. PAST MEDICAL HISTORY: Bladder suspension, TAVR, cholecystectomy, right retinal detachment, left bundle branch block, coronary artery disease, iron-deficiency anemia, hypertension, GERD, diastolic congestive heart failure, hyperlipidemia, osteoarthritis, left upper arm cellulitis, CHF, paroxysmal AFIB with RVR, aortic stenosis. MEDICATIONS: Amlodipine 2.5 mg a day, aspirin 81 mg a day, atorvastatin 40 mg a day, famotidine 20 mg a day, furosemide 20 mg daily, lisinopril 10 mg b.i.d., metoprolol succinate 25 mg b.i.d., potassium chloride 10 mEq daily, iron 325 mg b.i.d. ALLERGIES: None known. PHYSICAL EXAMINATION: General: Alert and oriented x3. She does not speak [place]i. Her daughter translates for her. She is preoccupied with nausea at this moment and is not very communicative except for yes and no answers to questions. She appears to be in significant distress from ongoing nausea. Temperature is 36.7, pulse 78, respirations 19, blood pressure is 147/58, O2 sat is 97% on 2 L nasal cannula. Pupils are equally round and reactive to light and accommodation. Extraocular muscles are intact. Sclerae are pink and not icteric. Throat looks normal. No lymph nodes are palpated neck or supraclavicular. There is no thyromegaly. JVD is less than 6 cm. No carotid bruits are heard. Heart is regular rate and rhythm without murmur. Lungs are clear to auscultation bilaterally. Abdomen is soft. Bowel sounds positive. Nontender. No organomegaly. Extremities have trace bilateral pitting edema. Skin has bruises on both arms. Neuro: Motor function is 4-5 throughout. There is no tremor. Gait and balance were not tested. LABORATORY TESTING: White count 9.5, hemoglobin 12.3, platelets 191. INR 1.03. Urinalysis: 3-10 RBCs, 0-5 WBCs, negative leukocyte esterase, negative nitrite. Sodium is 142, potassium 4.6, chloride 108, CO2 is 18, BUN 17, creatinine 0.6, glucose is 163. A1c is pending. Magnesium is 2.4. CK 43. Troponin-I 0.01. BNP is 2028. Procalcitonin 0.02. TSH is 0.526. EKG shows left bundle branch block with sinus rhythm. Telemetry tracing shows episodes of normal sinus rhythm interspersed with episodes of sinus bradycardia and junctional rhythm. There are at least four prolonged sinus pauses, the shortest one being 3 seconds, then 6 seconds, 15 seconds, and a 20 second long sinus pause. Chest x-ray: Bilateral reticular nodular infiltrates suspicious for pneumonia. Abdominal CT: A small hiatal hernia with mild intrahepatic and extrahepatic biliary dilation. There is a 1.6 cm nodular density in the right costophrenic angle with a followup recommended in 3-6 months. ASSESSMENT: 1. Acute onset of severe nausea and vomiting. 2. Increased vagal tone of vomiting. 3. Significant sinus pauses and junctional rhythm, intermittent. 4. Transcatheter aortic valve replacement (TAVR) 2016. 5. Coronary artery disease (CAD). 6. Hyperlipidemia. 7. Hypertension. 8. Diastolic congestive heart failure. 9. Left bundle branch block. 10. History of atrial fibrillation, paroxysmal. DISCUSSION: Cardiology consult has been requested to help narrow down several factors including which came first. Is the nausea the primary symptom and thus causing the bradycardia/sinus pauses or is the nausea a result of the spontaneous sinus pauses related to increased vagal tone and aging heart. The patient has been transferred to the progressive critical care unit and will be monitored closely with pacer pads in place. The metoprolol and amlodipine will be held. Lasix will be given for the apparent subclinical CHF and she may become a candidate for a pacemaker. The chest x-ray suggests the possibility of pneumonia, which the patient does not have any particular symptoms of, but certainly could have aspirated during her vomiting. We will recheck the white count and chest x-ray in the morning, holding off on antibiotics at this time as her Procalcitonin is only 0.02. TIME: Total time today is 80 minutes. MTDD
--- NOTE | 2017-02-25 18:01 | NUR ---
Chest Pain/Nausea [place] [facility] [place]ian speaking only. Daughter at bedside to interpret for patient. Patient a/o x 3, c/o nausea and left-side chest pressure 6/10 that radiates to her back. Nitro SL x 2 given with moderate effect, chest pain 2/10, Morphine offered and declined by patient. Zofran 8 mg given for nausea, min emesis. Patient resting this afternoon. Cardiology in to consult this afternoon, IV Lasix given with good effect. Patient assists with turns in the bed. VSS, tele SR IVCD. Family at bedside throughout the shift.
[2017-02-25 18:11] LABS: TROPONIN T < 0.010 ug/L (0.0-0.011)
[2017-02-25 18:19] LABS: Creatine Kinase 53 U/L (21-215)
--- NOTE | 2017-02-25 19:41 | NUR ---
SAMIR signed by pt's daughter.
[2017-02-26] VITALS (11 sets, daily range): BP systolic 130–163; BP diastolic 38–73; PULSE 59–72; RESP 16–22; O2SAT 97–100
[2017-02-26] MEDS: Sodium Chloride LOK Flush 10 mL Syringe IVFLUSH SCH ×5 (00:30→23:31)
[2017-02-26 03:42] LABS: BASOPHILS % (AUTO) 0.2 % (0-3); EOSINOPHILS % (AUTO) 1.6 % (0-5); Mean Corpuscular Hemoglobin 32.4 pg (27.0-35.0); Mean Corpuscular Volume 97.2 fL (81-100); NEUTROPHILS % (AUTO) 58.3 % (40-74); Platelet Count 165 bil/L (150-400)
--- NOTE | 2017-02-26 06:22 | NUR ---
Tele Patient continues to be bedrest. Denies pain. Tele: sinus rhythm with periods of sinus matthew down into the 40s with recovery into the 60s. Patient is sleeping overnight, rouses to minor stimulation for care. No further sinus pauses noted on telemetry. Zoll unit and pacer pads at bedside.
[2017-02-26] MEDS: 0.9% Sodium Chloride 1,000 ML IV SCH ×2 (07:05→12:04)
[2017-02-26] MEDS ORDERED: [UNRECOGNIZED DRUG - REMARK] PO SCH (08:30)
--- NOTE | 2017-02-26 08:47 | DRSVH ---
PROCEDURE: X-RAY CHEST ONE VIEW, PORTABLE ([id number]) INDICATIONS: Abnormal CXR TECHNIQUE: One view of the chest was acquired. COMPARISON: [facility], CT, CT CHEST WO CON, 05/10/2016, 8:11. [facility], C R, XR CHEST 1VW, 02/25/2017, 5:46. [facility], CR, XR CHEST 1VW (PORTABLE), 02/26/2016, 22 :20. FINDINGS: Surgical changes and devices: Expandable stent at the aortic root is identified, previously present a lso during CT scanning of the chest 05/10/16. Lungs and pleura: No pleural effusions or pneumothorax. Lungs are abnormal with a mild interstitial prominence, possibly from chronic CHF.. Mediastinum: Mediastinal contours appear normal. Heart size is normal. Bones and chest wall: No suspicious bony lesions. Overlying soft tissues appear unremarkable. IMPRESSION: Probable chronic CHF pattern with interstitial prominence but no definite acute CHF at th is time is found. Previously present aortic root and ascending aorta expandable stent again noted, w ithout change from prior CT scanning in 2015. Dictated by: Daniel Moraes M.D. on 02/26/2017 at 8:43 Approved by: Daniel Moraes M.D. on 02/26/2017 at 8:45
[2017-02-26] MEDS: Pantoprazole 20 mg ER24 Tablet PO SCH (09:14)
--- NOTE | 2017-02-26 14:48 | PROG NOTE ---
[address] [address] CARDIOLOGY PROGRESS NOTE PATIENT: AMADO SHETTY : 1930 MR#: [id number] ADMIT: 02/25/2017 JOB ID: [id number] DATE OF SERVICE: 02/26/2017 SUBJECTIVE: The patient is comfortable lying in the bed. She states that she has been feeling better. Her dyspnea on exertion improved. She periodically gets slight chest heaviness either while lying down or especially when she walks around. She does not feel nauseated and has not been having vomiting. The patient is Thai-speaking and I communicate with her through her daughter and through asl interpreter. The patient tells me that after she had a TAVR procedure which was done January 19, 2016, her chest heaviness and dyspnea on exertion got better, but last three months or so, she noticed that she has been getting worsening exertional chest discomfort, heaviness/pressure in the mid substernal area, radiating to her throat and also dyspnea on exertion and she usually develops these symptoms after walking 5 minutes. When she takes a rest, symptoms disappear spontaneously in 5 minutes. Sometimes she gets some chest heaviness also while sitting, and actually today at presentation, she told me that at some point, she developed slight chest heaviness in lower substernal area, which later dissipated spontaneously. Also before this admission she was having some signs of orthopnea and PND. Most importantly after her TAVR procedure, she has been experiencing very often about three or four times a week brief presyncopal episodes After TAVR procedure, she once was admitted to [facility] and she tells me that before that she even had a syncopal episode. Physical EXAm: Vitals temperature 37.1 Celsius, pulse 59 per minute. respiratory rate 16, blood pressure 147/73 mmHg. Saturation 99% on 1 L O2. General: She is lying comfortably in the bed, no acute distress. ENT: Mucous membranes moist, sclerae anicteric. Neck supple. No thyromegaly. Pulmonary: Normal breathing sounds bilaterally. No crackles. No wheezing appreciated. Cardiac: Regular rate and rhythm, systolic murmur, 2/6 on the base, and a systolic murmur 1/6 at apex. Mildly elevated JVP on 45 degrees. Extremities: No lower extremity edema. Neuro: Alert and oriented x3, no gross abnormalities. Labs from February 26, 2017, white blood cells 8.1, red blood cells 3.27,hemoglobin 10.6, hematocrit 31.8. Platelets 165. Sodium 142, potassium 3.7, chloride 107, carbon dioxide 20, BUN 13, creatinine 0.69, glucose 114. Calcium 8.7. Triglycerides 147, cholesterol 100, LDL 31.6, HDL 39. TSH from February 25, 2017, 0.526. On telemetry, sinus rhythm, with heart rate in 50s, 60s beats per minute. She has not been having pauses since yesterday morning, when on February 25, 2017, at 10:30, she had a 5.9 second pause when she was vomiting per reports. ASSESSMENT AND PLAN: This is a very pleasant, 86-year-old, Thai-speaking lady who was admitted on February 25, 2017, with nausea, vomited, and found to be bradycardic with episodes of bradycardia with heart rate in 20s and 30s. Notably, the patient had an episodes of long sinus pause of 20 seconds and 15 sec while she was in ER and she was vomiting. The patient does not know if she passed out or not. Notablety,she does not remember anything. Her daughter tells me that when she looked at her mother,her eyes were closed periodically, so it is not clear if she passed out or not. The patient has a history of documented left bundle branch block and second-degree AV block in the past when she had cardiac cath on 01/13/2016 and she has a history of coronary artery disease with known disease in RCA with a tubular stenosis of about 50% to 60% in proximal and middle area She has a history of critical aortic stenosis and she [place] [facility] [place] she had aortic valve replacement with Medtronic core valve, Evolut 29 mm. She also had a ARRON done on February 29, 2016, which showed preserved LV systolic function, moderate TR, with tricuspid valve that was found to have evidence of perhaps ruptured tricuspid chordae and that was initially considered possibly a valvular vegetation. She also has moderate central MR. Her bioprosthetic aortic valve was sitting properly with some mild paravalvular leak. She also has history of hypertension. Currently she does not have nausea or vomiting. She continues having some dyspnea on exertion and exertional chest pressure. Her trops has been negative. # Long Sinus pauses. As noted above, patient had a long, 20-second and 15 sec pauses in ED, at later Had 5.94 sec pause although she was vomiting reportedly. She has a documented history of a left bundle branch block and second-degree AV block in the past; Yesterday on telemetry there were episodes what it looks like complete and 2nd degree AV block and also she has been having frequent presyncopal episodes since she had the TAVR procedure; taking all of this in mind we would recommend that the patient would need pacemaker implantation. We are going to discuss this with machine woodworking sander/company manager, Dr. Martini. # Coronary artery disease. The patient has known coronary artery disease, in RCA:tubular stenosis, about 50% to 60%, which is in proximal to mid segment area, this is per cardiac cath from January 13, 2016. She has been experiencing exertional chest pain. Doing stress test would be challenging with her because we cannot do Lexiscan stress test with her, taking in mind episode of bradycardia, AV block and long sinus pauses. She is not able to walk on treadmill because she cannot walk fast and she uses cane. Taking all this in mind, would consider catheterization tomorrow morning, on February 27, 2017, to reassess her CAD in RCA progressed which also could be contributing to her bradycardia and pauses. She need to be NPO starting midnight today. # h/o of critical aortic stenosis, s/p [place]R procedure, which [place] [facility] [place] She has been experiencing FLEMING with exertional chest pain lastv three months. I will order echo to assess her cardiac function and valvular apparatus and known moderate MR and TR and known pulmonary hypertension. Currently, on exam, her volume status improved and she does not have signs of significant volume overload. I would continue her furosemide 40 mg daily p.o. #Hypertension. She is hypertensive. Today, her blood pressure currently is 147/73. I would recommend to start her on Amlodipine 5 mg and uptitrate it as needed depending on hypertension. #Severe pulmonary hypertension Patient told me that she is Jehovah witnesses follower and refuses to have any blood transfusinos. The case was discussed with machine woodworking sander, Dr. Melendez, who agreed with assessment and plan. LENI
--- NOTE | 2017-02-26 15:54 | DRSVH ---
[facility] [address] [place] [address] Echocardiogram Report Name: AMADO PRADO Study Date: 02/26/2017 Height: 62 in Hospital Exam Location: [facility] Weight: 16 8 lb Gender: Female BSA: 1.8 m2 : 1930 Age: 86 yrs BP: 139/38 mmHg Reason For Study: Dyspnea, Chest pain Performed By: Yahaira Avilez Referring Physician: MAREN GOMES Interpretation Summary There is mild mitral annular calcification. Left ventricular wall thickness is borderline increased. The ejection fraction is estimated to be 60-65%. There is mild mitral regurgitation. There is a prosthetic aortic valve. There is mild perivalvular regurgitation around the prosthetic aortic valve. The prosthetic aortic valve function is normal. The right ventricular systolic pressure is estimated at 52 mmHg assuming a right atrial pressure of 8 mm Hg. Procedure: A two-dimensional transthoracic echocardiogram with color flow and Doppler was performed. The study quality was technically adequate. Comparison is made with the echocardiogram of 02/29/2016. The patient was in sinus rhythm with ectopy. The heart rate varied from 57-66 bpm. Left Ventricle: The left ventricle is mildly dilated. Left ventricular wall thickness is borderline increased. The ejection fraction is estimated to be 60-65%. Left ventricular wall motion is normal. Right Ventricle: The right ventricle is normal in size and function. Atria: The left atrial size is normal. Borderline right atrial enlargement. The interatrial septum is intact with no evidence for an atrial septal defect. Mitral Valve: The mitral valve leaflets appear mildly thickened, but open well. There is mild mitral annular calcification. There is mild mitral regurgitation. Aortic Valve: There is a prosthetic aortic valve. There is mild perivalvular regurgitation around the prosthetic aortic valve. The prosthetic aortic valve function is normal. The peak aortic velocity is 241.5 m/sec. The aortic valve mean gradient is 11 mmHg. Tricuspid Valve: The tricuspid valve is not well visualized. The right ventricular systolic pressure is estimated at 52 mmHg assuming a right atrial pressure of 8 mm Hg. There is mild tricuspid regurgitation. Pulmonic Valve: The pulmonic valve is normal in structure and function. There is a trace or physiologic amount of pulmonic regurgitation. Great Vessels: The aortic root is normal size. The ascending aorta is normal in size. The IVC is of normal diameter and collapses less than 50% with a sniff. This suggests a right atrial pressure of 8 mm Hg. Pericardium/ Pleura There is no pericardial effusion. There is an anterior echo-free space consistent with a fat pad. There is no pleural effusion. MMode/2D Measurements & Calculations LVIDd: 5.4 cm RA long axis LVOT diam LVIDs: 3.0 cm LA A2 area: 17.5 cm : 2.0 cm FS: 43.9 % LA A4 area: 22.0 cm RA area IVSd: 1.1 cm LA length (vol): 5.8 cm LVPWd: 1.1 cm LA vol: 56.5 ml : 13.7 cm RA vol: 32.9 ml LA vol index: 31.8 ml/m2RA : 18.5 mm2 LV cuadra. diameter/BSA LV sys. diameter/BSA TAPSE: 2.5 cm (cm/m^2): 3.0 (cm/m^2): 1.7 Doppler Measurements & Calculations Ao V2 max: 241.5 cm/secMV E max brock MV E/A: 0.89 TR max brock Ao max P.3 mmHg : 106.2 cm/sec Med Peak E' Brock : 325.9 cm/sec Ao mean P.6 mmHg MV A max brock TR max PG LVOT Max Brock : 119.2 cm/sec E/E' med: 24.5 : 44.9 mmHg : 114.6 cm/sec Lat Peak E' Brock PA V2 max JHONATHAN(I,D): 1.8 cm : 123.1 cm/sec sev ratio: 0.58 E/E' lat: 20.0 PA mean PG E/e' average : 3.2 mmHg MV dec time: 0.31 sec Ao V2 mean LV V1 max PG PA V2 mean : 150.0 cm/sec : 85.3 cm/sec Ao V2 VTI: 50.1 cmLV V1 VTI PA pr(Accel) JHONATHAN(V,D): 1.4 cm2 : 29.3 cm : 49.5 mmHg JHONATHAN indexed to BSA (cm^2/m^2): 0.99 Electronically signed by: Andres Melendez on Reading Physician:02/26/2017 03:53 PM
--- NOTE | 2017-02-26 17:33 | NUR ---
Activity/Tele/POC Patient icelandic speaking only, a/o x 3, denies pain, nausea or sob per interpretor. Patient oob amb in room and escobedo with family, steady gait. VSS, tele SR 60-70's at rest and 80-90's with activity. No cardiac pauses noted this shift. Plan for npo after midnight for angiogram and pacemaker placement. Daughter at bedside throughout the shift and updated on poc per interpretor staff.
--- NOTE | 2017-02-26 22:30 | PCM.PNMED ---
Subjective Date of Service Feb 26, 2017 Subjective Overnight Events. No acute events overnight. She is resting in bed comfortably and in no acute distress. The patient reports feeling better than the day prior. She does mention she has some chest pain with activity and SOB, but is fine when resting. The patient denies headache, dizziness, abdominal pain, nausea, vomiting, constipation, and diarrhea. The patient is voiding and eliminating without difficulty. Exam Vital Signs Vital Sign - Last Date Time Temp Pulse Resp B/P Pulse Ox O2 Delivery O2 Flow Rate FiO2 02/26/17 21:35 130/53 100 Nasal Cannula 2.00 02/26/17 21:30 36.6 61 18 Intake and Output 02/25/17 02/25/17 02/26/17 Cumulative From/Thru 15:00 23:00 07:00 02/25/17 02:05 - 02/26/17 06:20 Intake Total 784 ml 929 ml 2712 ml Output Total 800 ml 800 ml 1600 ml Balance -16 ml 129 ml 1112 ml Intake Oral 400 ml 360 ml 760 ml IV Total 384 ml 569 ml 1952 ml Output Urine Total 800 ml 800 ml 1600 ml # Voids 2 3 5 Exam General: No acute distress, well-developed, well-nourished, appropriately interactive HEENT: Normocephalic, atraumatic. Pupils equal, round. Anicteric sclerae. Cardiovascular: Regular rate and rhythm with systolic murmur, no rubs, or gallops appreciated Pulmonary: Clear to auscultation bilaterally with no crackles, wheezes, or rhonchi. Normal respiratory effort with no use of accessory muscles. Abdomen: Bowel tones present. Soft, nontender, nondistended. Extremities: No lower extremity edema. Patient does have more fullness of left calf, but no swelling. Does have tenderness to palpation in both calves. Neurological: Cranial nerves grossly intact. Psychiatric: Normal mood and affect. Alert and oriented to person, place, and time. Lab and Diagnostics CBC Test 02/26/17 03:20 White Blood Count 8.1th/mm3 (3.8-10.1) Red Blood Count 3.27mil/mm3 (3.90-5.20) Hemoglobin 10.6g/dL (12.0-15.6) Hematocrit 31.8% (35.0-46.0) Mean Corpuscular Volume 97.2fL (81-100) Mean Corpuscular Hemoglobin 32.4pg (27.0-35.0) Mean Corpuscular Hemoglobin Concent 33.3% (32.0-37.0) Red Cell Distribution Width 12.8% (12.3-15.4) Platelet Count 165bil/L (150-400) Neutrophils (%) (Auto) 58.3% (40-74) Lymphocytes (%) (Auto) 27.8% (14-46) Monocytes (%) (Auto) 12.0% (4-12) Eosinophils (%) (Auto) 1.6% (0-5) Basophils (%) (Auto) 0.2% (0-3) CMP Test 02/25/17 03:17 02/25/17 03:50 02/25/17 04:00 02/25/17 12:00 Total Bilirubin 0.4mg/dL Aspartate Amino Transf (AST/SGOT) 43U/L Alanine Aminotransferase (ALT/SGPT) 27U/L Alkaline Phosphatase 86U/L Total Protein 8.0g/dL Albumin 4.1g/dL Lipase 50U/L Lactic Acid Level 1.3mmol/L Hold Mahmood Top Tube Received Magnesium Level 2.4mg/dL Pro-B-Type Natriuretic Peptide 2028pg/mL Procalcitonin 0.02ng/mL Thyroid Stimulating Hormone (TSH) 0.526uIU/mL Test 02/25/17 17:15 02/26/17 03:20 Total Creatine Kinase 53U/L Creatine Kinase MB 2.6ng/mL Creatine Kinase MB % % Troponin T < 0.010ug/L Sodium Level 142mEq/L Potassium Level 3.7mEq/L Chloride Level 107mEq/L Carbon Dioxide Level 20mmol/L Blood Urea Nitrogen 13mg/dL Creatinine 0.69mg/dL Estimat Glomerular Filtration Rate 116mL/min Glucose Level 114mg/dL Calcium Level 8.7mg/dL Triglycerides Level 147mg/dL Cholesterol Level 100mg/dL LDL Cholesterol, Calculated 31.600mg/dL VLDL Cholesterol 29.400mg/dL HDL Cholesterol 39mg/dL Cholesterol/HDL Ratio 2.56 Result Diagram: 02/26/1731902/26/17 032 Assessment & Plan Significant sinus pauses and junctional rhythm, intermittent - Patient having pauses up to twenty seconds. Seems to have improved. - Cardiology consult appreciated. ECHO ordered. Plan is for angio and pacemaker tomorrow per Dr. Martini. - NPO after midnight, hold lovenox Coronary artery disease (CAD). - History of RCA tubular stenosis about 50 - 60%. She has had some exertional chest pain - As above, catheterization scheduled for tomorrow History of critical aortic stenosis s/p Transcatheter aortic valve replacement ( TAVR) 2016. - ECHO today per cardiology to asses cardiac function and valvular apparatus. Hypertension. - Start amlodipine 5 mg and uptitrate as needed per cardiology consult - Metoprolol held Diastolic congestive heart failure. - Repeat Chest x-ray consistent with CHF - Lasix 40 mg PO daily Acute onset of severe nausea and vomiting - stable - Likely a result of the spontaneous sinus pauses as patient is now asymptomatic and also has not had a reoccurrence of the pauses. - Reglan and Zofran PRN Pain Evaluation: Adequate Pain Control GI Prophylaxis: Proton Pump Inhibitor VTE Prophylaxis: Sub-Q Enoxaparin Resuscitation Status: CPR: Attempt Resuscitation Attending Statement The patient was seen and examined together with Dr. Pritchard on 02/26/2017 and I agree with the history, exam and plan as outlined in the note above. . Guru Pritchard DO Feb 26, 2017 21:56 Franklin Husain MD Mar 02, 2017 05:37
[2017-02-27] VITALS (16 sets, daily range): BP systolic 130–165; BP diastolic 35–71; PULSE 51–67; RESP 16–18; O2SAT 94–100
[2017-02-27] MEDS ORDERED: Magnesium Hydroxide 10 mL Oral Concentration PO ONE (00:45)
[2017-02-27] MEDS: 0.9% Sodium Chloride 1,000 ML IV SCH (02:39)
--- NOTE | 2017-02-27 05:31 | NUR ---
Chest Pain At HS, pt reported chest pain at 8/10, as an intermittent ache, radiating to jaw, with associated difficulty breathing. 2L NC placed, paged, STAT EKG obtained, STAT troponin obtained, 2 SL nitro administered with relief from 8/10 to 4/10 after first nitro and from 4/10 to 2/10 after second nitro. BP initially 156/59, and decreased to 130s systolic after nitroglycerin administrations. Pt comfortable until reassessment at approx. 2330, when pt reported pain had increased again to 5/10 and BP increased to 163/63. paged again, 2mg morphine IVP administered and more labs drawn. Morphine mildly effective, reduced BP by approx. 10 points systolic and reduced from 5/10 pain to 3/10. Upon reassessment at approx. 0230, pt denied any further pain, BP 140s systolic. No further incidents this shift. NPO after midnight for procedures today. Tele SR 60s-70s IVCD.
[2017-02-27] MEDS ORDERED: Vancomycin Inj 1,000 MG in IV Premix 1 EACH IV ONE (06:00)
[2017-02-27] MEDS ORDERED: 0.9% Sodium Chloride 1,000 ML IV PRN (06:00)
[2017-02-27 06:14] LABS: BASOPHILS % (AUTO) 0.5 % (0-3); EOSINOPHILS % (AUTO) 4.2 % (0-5); MONOCYTES % (AUTO) 11.6 % (4-12); Mean Corpuscular Hemoglobin 32.5 pg (27.0-35.0); Mean Corpuscular Volume 95.3 fL (81-100); NEUTROPHILS % (AUTO) 45.2 % (40-74); Platelet Count 156 bil/L (150-400)
[2017-02-27] MEDS: Pantoprazole 20 mg ER24 Tablet PO SCH (10:30)
[2017-02-27] MEDS: Sodium Chloride LOK Flush 10 mL Syringe IVFLUSH SCH ×6 (10:32→21:00)
[2017-02-27] MEDS ORDERED: 0.9% Sodium Chloride 1,000 ML IV ONE (11:00)
[2017-02-27] MEDS ORDERED: Heparin 1,000 Units/500 mL NS Premix IV ONE (15:06)
[2017-02-27] MEDS ORDERED: Heparin 10,000 Unit/1,000 mL NS Premix IV ONE (15:07)
[2017-02-27] MEDS ORDERED: fentaNYL-PF 50 mCg/mL 2 mL Inj ONE (15:54)
--- NOTE | 2017-02-27 16:21 | NUR ---
Cath Patient npo since midnight, denies chest pain, nausea or sob. Amb in room, steady gait. Pateint polish speaking only, interpretor used for assessment and prn. Consent to be signed with MD and interpretor in tender labor. Patient down to tender labor at 1530.
--- NOTE | 2017-02-27 16:57 | CS94 ---
[address] [address] DIAGNOSTIC CARDIAC CATHETERIZATION PATIENT: AMADO SHETTY : 1930 MR#: [id number] ADMIT: 02/25/2017 JOB ID: [id number] SERVICE DATE: 02/27/2017 PROCEDURE: Selective right and left coronary angiography. Aortogram. PROCEDURAL DETAILS: The reader and the coders are referred to the procedure log for complete details. Briefly, it was done via right femoral approach using a 5-Citizen Of [place] system. INDICATION: Recurrent chest pain. ANGIOGRAPHIC FINDINGS: 1. Transcatheter valve was noted in the aortic position. 2. Left main: No significant disease. 3. LAD free of any significant disease. 4. Circumflex codominant, free of any critical stenosis. 5. Right coronary artery is codominant in the sense that it gives off the PDA but most of the posterolateral circulation is through the circumflex. In its mid portion it has about a 30% to 40% lesion. This shows minimal interim progression since her last diagnostic angiogram. 6. Trivial AI was noted. We then attempted to do an aortogram but due to technical problems we were unsuccessful and the case was terminated. In summary, no significant epicardial coronary artery disease. There does not appear to be any pinching of the coronaries from the stent valve. I will be sending these pictures over to Chadronpérez Amador for review. I believe she had this procedure done with Dr. Puentes at [facility].
[2017-02-27] MEDS ORDERED: Sodium Chloride LOK Flush 10 mL Syringe IVFLUSH PRN (20:10)
[2017-02-27] MEDS ORDERED: 0.9% Sodium Chloride 250 ML BOLUS IV PRN (20:10)
[2017-02-27] MEDS ORDERED: Ondansetron 2 mg/mL 2 mL Inj IVPUSH PRN (20:10)
[2017-02-27] MEDS ORDERED: Atropine 1 mg/10 mL (Code) Syringe IVPUSH PRN (20:10)
[2017-02-27] MEDS ORDERED: 0.9% Sodium Chloride 400 ML (4 HRS) IV ONE (20:10)
--- NOTE | 2017-02-27 21:57 | PCM.PNMED ---
Subjective Date of Service Feb 27, 2017 Subjective Overnight Events. No acute events overnight. Adapted from Nurse Parisi Note: Pt reported chest pain at 8/10, as an intermittent ache, radiating to jaw, with associated difficulty breathing. 2L NC placed, 2 SL nitro administered with relief from 8/10 to 4/10 after first nitro and from 4/10 to 2/10 after second nitro. BP initially 156/59, and decreased to 130s systolic after nitroglycerin administrations. Stat EKG unchanged from prior, STAT troponin negative, CKMB 6.9. Repeat CKMB 6.3 while stat troponin still negative. 2mg morphine IVP administered and more labs drawn. Morphine mildly effective, reduced BP by approx. 10 points systolic and reduced from 5/10 pain to 3/10. Upon reassessment at approx. 0230, pt denied any further pain, BP 140s systolic. No further incidents this shift. NPO after midnight for procedures today. Tele SR 60s-70s IVCD. Patient is resting in bed comfortably and in no acute distress this morning. The patient reports having the chest pain overnight, but feeling much better now. The patient denies headache, dizziness, sore throat, cough, chest pain, shortness of breath, abdominal pain, nausea, vomiting, constipation, and diarrhea. The patient is voiding and eliminating without difficulty. Exam Vital Signs Vital Sign - Last Date Time Temp Pulse Resp B/P Pulse Ox O2 Delivery O2 Flow Rate FiO2 02/27/17 20:56 36.7 62 16 133/35 98 Room Air 02/27/17 08:01 2.00 Intake and Output 02/26/17 02/26/17 02/27/17 Cumulative From/Thru 15:00 23:00 07:00 02/25/17 02:05 - 02/27/17 05:22 Intake Total 1777 ml 0 ml 4489 ml Output Total 400 ml 400 ml 2400 ml Balance 1377 ml -400 ml 2089 ml Intake Oral 1436 ml 0 ml 2196 ml IV Total 341 ml 2293 ml Output Urine Total 400 ml 400 ml 2400 ml # Voids 2 7 Exam General: No acute distress, well-developed, well-nourished, appropriately interactive HEENT: Normocephalic, atraumatic. Anicteric sclerae. Cardiovascular: Regular rate and rhythm with systolic murmur, no rubs, or gallops appreciated Pulmonary: Clear to auscultation bilaterally with no crackles, wheezes, or rhonchi. Normal respiratory effort with no use of accessory muscles. Abdomen: Bowel tones present. Soft, nontender, nondistended. Extremities: No lower extremity edema. LE nontender bilaterally Neurological: Cranial nerves grossly intact. Psychiatric: Normal mood and affect. Alert and oriented to person, place, and time. Lab and Diagnostics Laboratory Tests 72 Hours Test 02/25/17 03:17 02/25/17 03:50 02/25/17 04:00 02/25/17 04:07 White Blood Count 9.5th/mm3 (3.8-10.1) Red Blood Count 3.80mil/mm3 (3.90-5.20) Hemoglobin 12.3g/dL (12.0-15.6) Hematocrit 36.1% (35.0-46.0) Mean Corpuscular Volume 95.0fL (81-100) Mean Corpuscular Hemoglobin 32.4pg (27.0-35.0) Mean Corpuscular Hemoglobin Concent 34.1% (32.0-37.0) Red Cell Distribution Width 12.6% (12.3-15.4) Platelet Count 191bil/L (150-400) Neutrophils (%) (Auto) 81.8% (40-74) Lymphocytes (%) (Auto) 12.8% (14-46) Monocytes (%) (Auto) 4.3% (4-12) Eosinophils (%) (Auto) 0.7% (0-5) Basophils (%) (Auto) 0.3% (0-3) Sodium Level 140mEq/L (134-144) Potassium Level 4.6mEq/L (3.5-5.2) Chloride Level 105mEq/L (97-108) Carbon Dioxide Level 20mmol/L (18-29) Blood Urea Nitrogen 23mg/dL (8-27) Creatinine 0.65mg/dL (0.57-1.00) Estimat Glomerular Filtration Rate 124mL/min (>59) Glucose Level 170mg/dL (60-99) Calcium Level 9.1mg/dL (8.5-10.1) Magnesium Level 2.4mg/dL (1.6-2.6) Total Bilirubin 0.4mg/dL (0.0-1.2) Aspartate Amino Transf (AST/SGOT) 43U/L (0-50) Alanine Aminotransferase (ALT/SGPT) 27U/L (0-32) Alkaline Phosphatase 86U/L (25-165) Total Protein 8.0g/dL (6.4-8.4) Albumin 4.1g/dL (3.4-5.0) Lipase 50U/L (13-60) Prothrombin Time 11.0sec (8.1-12.5) Prothromb Time International Ratio 1.03ratio Lactic Acid Level 1.3mmol/L (0.4-2.0) Hold Mahmood Top Tube Received (Received) Urine Color Yellow (YELLOW) Urine Appearance Clear (CLEAR,HAZY) Urine pH 5.5 (5.0-8.0) Urine Specific [place] 1.020 (1.003-1.035) Urine Protein 30mg/dL (NEG,TRACE) Urine Glucose (UA) Negativemg/dL (NEGATIVE) Urine Ketones Negativemg/dL (NEGATIVE) Urine Occult Blood Negative (NEGATIVE) Urine Nitrite Negative (NEGATIVE) Urine Bilirubin Negative (NEGATIVE) Urine Urobilinogen Normalmg/dL (NORMAL) Urine Leukocyte Esterase Negative (NEGATIVE) Urine RBC 3-10/hpf (0-2) Urine WBC 0-5/hpf (0-5) Urine Epithelial Cells Occasional/hpf (NONE-MOD) Urine Crystals None seen (NONE SEEN) Urine Bacteria Moderate/hpf (NONE-FEW) Urine Hyaline Casts None/lpf (NONE) Urine Granular Casts None seen (NONE SEEN) Urine Waxy Casts None seen (NONE SEEN) Urine Red Blood Cell Casts None seen (NONE SEEN) Urine White Blood Cell Casts None seen (NONE SEEN) Urine Mucus None seen (None Seen) Urine Trichomonas None seen (NONE SEEN) Urine Yeast None (NONE SEEN) Urinalysis Comment None Urine Culture Reflexed Indicated Test 02/25/17 05:25 02/25/17 12:00 02/25/17 17:15 02/26/17 03:20 Troponin T 0.010ug/L (0.0-0.011) 0.010ug/L (0.0-0.011) < 0.010ug/L (0.0-0.011) Sodium Level 142mEq/L (134-144) 142mEq/L (134-144) Potassium Level 4.6mEq/L (3.5-5.2) 3.7mEq/L (3.5-5.2) Chloride Level 108mEq/L (97-108) 107mEq/L (97-108) Carbon Dioxide Level 18mmol/L (18-29) 20mmol/L (18-29) Blood Urea Nitrogen 17mg/dL (8-27) 13mg/dL (8-27) Creatinine 0.60mg/dL (0.57-1.00) 0.69mg/dL (0.57-1.00) Estimat Glomerular Filtration Rate 136mL/min (>59) 116mL/min (>59) Glucose Level 163mg/dL (60-99) 114mg/dL (60-99) Hemoglobin A1c 5.9% (4.8-5.6) Calcium Level 8.6mg/dL (8.5-10.1) 8.7mg/dL (8.5-10.1) Magnesium Level 2.4mg/dL (1.6-2.6) Total Creatine Kinase 43U/L (21-215) 53U/L (21-215) Creatine Kinase MB 2.3ng/mL (0.0-5.3) 2.6ng/mL (0.0-5.3) Creatine Kinase MB % % (0.0-5.0) % (0.0-5.0) Pro-B-Type Natriuretic Peptide 2028pg/mL (0-738) Procalcitonin 0.02ng/mL (0.00-0.08) Thyroid Stimulating Hormone (TSH) 0.526uIU/mL (0.450-4.500) White Blood Count 8.1th/mm3 (3.8-10.1) Red Blood Count 3.27mil/mm3 (3.90-5.20) Hemoglobin 10.6g/dL (12.0-15.6) Hematocrit 31.8% (35.0-46.0) Mean Corpuscular Volume 97.2fL (81-100) Mean Corpuscular Hemoglobin 32.4pg (27.0-35.0) Mean Corpuscular Hemoglobin Concent 33.3% (32.0-37.0) Red Cell Distribution Width 12.8% (12.3-15.4) Platelet Count 165bil/L (150-400) Neutrophils (%) (Auto) 58.3% (40-74) Lymphocytes (%) (Auto) 27.8% (14-46) Monocytes (%) (Auto) 12.0% (4-12) Eosinophils (%) (Auto) 1.6% (0-5) Basophils (%) (Auto) 0.2% (0-3) Triglycerides Level 147mg/dL (0-149) Cholesterol Level 100mg/dL (100-199) LDL Cholesterol, Calculated 31.600mg/dL (0-99) VLDL Cholesterol 29.400mg/dL HDL Cholesterol 39mg/dL (>39) Cholesterol/HDL Ratio 2.56 (0.0-4.4) Test 02/26/17 22:39 02/26/17 23:59 02/27/17 01:10 02/27/17 05:20 Troponin T < 0.010ug/L (0.0-0.011) 0.010ug/L (0.0-0.011) Total Creatine Kinase 289U/L (21-215) 248U/L (21-215) Creatine Kinase MB 6.9ng/mL (0.0-5.3) 6.3ng/mL (0.0-5.3) Creatine Kinase MB % 2.4% (0.0-5.0) 2.5% (0.0-5.0) White Blood Count 5.5th/mm3 (3.8-10.1) Red Blood Count 3.20mil/mm3 (3.90-5.20) Hemoglobin 10.4g/dL (12.0-15.6) Hematocrit 30.5% (35.0-46.0) Mean Corpuscular Volume 95.3fL (81-100) Mean Corpuscular Hemoglobin 32.5pg (27.0-35.0) Mean Corpuscular Hemoglobin Concent 34.1% (32.0-37.0) Red Cell Distribution Width 12.5% (12.3-15.4) Platelet Count 156bil/L (150-400) Neutrophils (%) (Auto) 45.2% (40-74) Lymphocytes (%) (Auto) 38.5% (14-46) Monocytes (%) (Auto) 11.6% (4-12) Eosinophils (%) (Auto) 4.2% (0-5) Basophils (%) (Auto) 0.5% (0-3) Sodium Level 142mEq/L (134-144) Potassium Level 3.7mEq/L (3.5-5.2) Chloride Level 105mEq/L (97-108) Carbon Dioxide Level 25mmol/L (18-29) Blood Urea Nitrogen 10mg/dL (8-27) Creatinine 0.59mg/dL (0.57-1.00) Estimat Glomerular Filtration Rate 138mL/min (>59) Glucose Level 99mg/dL (60-99) Calcium Level 8.8mg/dL (8.5-10.1) Result Diagram: 02/27/1751902/27/17519 Cardiac Echo Impressions Cardiac ECHO Interpretation Summary There is mild mitral annular calcification. Left ventricular wall thickness is borderline increased. The ejection fraction is estimated to be 60-65%. There is mild mitral regurgitation. There is a prosthetic aortic valve. There is mild perivalvular regurgitation around the prosthetic aortic valve. The prosthetic aortic valve function is normal. The right ventricular systolic pressure is estimated at 52 mmHg assuming a right atrial pressure of 8 mm Hg. Assessment & Plan Significant sinus pauses and junctional rhythm, intermittent - Patient having pauses up to twenty seconds. Seems to have improved as this has not been seen on tele for about 2 days. - Cardiology consult appreciated. - Pacemaker scheduled for tomorrow AM. - NPO after midnight, hold lovenox - Patient on Telemetry. Coronary artery disease (CAD). - History of RCA tubular stenosis about 50 - 60%. She has had some exertional chest pain - Patient to be taken to mushroom laborer today. Hypertension. - Continue amlodipine 5 mg and uptitrate as needed per cardiology consult - Blood pressures improved. - Metoprolol held Acute on Chronic Diastolic congestive heart failure. - Repeat Chest x-ray consistent with CHF - ECHO shows EF of 60-65% - Lasix 40 mg PO daily Acute onset of severe nausea and vomiting - stable - Likely a result of the spontaneous sinus pauses as patient is now asymptomatic and also has not had a reoccurrence of the pauses. - Reglan and Zofran PRN Chronic History of critical aortic stenosis s/p Transcatheter aortic valve replacement ( TAVR) 2016. Acetaminophen for mild pain when necessary. Bowel regimen Senna and MiraLAX scheduled and PRN Zofran when necessary for nausea and vomiting. High Risk Medications: IV morphine Pain Evaluation: Adequate Pain Control GI Prophylaxis: Proton Pump Inhibitor VTE Prophylaxis: Sub-Q Enoxaparin Resuscitation Status: CPR: Attempt Resuscitation Attending Statement The patient was seen and examined together with Dr. Pritchard on 02/27/2017 and I agree with the history, exam and plan as outlined in the note above. . Guru Pritchard DO Feb 27, 2017 21:10 Franklin Husain MD Mar 02, 2017 05:37
[2017-02-28] VITALS (15 sets, daily range): BP systolic 136–158; BP diastolic 41–74; PULSE 57–66; RESP 14–20; O2SAT 94–98
[2017-02-28 03:18] LABS: BASOPHILS % (AUTO) 0.2 % (0-3); EOSINOPHILS % (AUTO) 3.3 % (0-5); Mean Corpuscular Hemoglobin 32.4 pg (27.0-35.0); NEUTROPHILS % (AUTO) 57.7 % (40-74); Platelet Count 156 bil/L (150-400)
--- NOTE | 2017-02-28 05:33 | NUR ---
Nausea Pt returned from greenskeeper laborer at approx. 0730 via bed; groin site C/D/I, pt denies any pain. Bedrest until approx. 2044, pt tolerating activity well afterwards. Ongoing stomach discomfort at beginning of shift, pt suspects r/t dinner eaten in [place]. Reglan administered at approx. 0000, no further complaints this shift. VSS, tele SR 60s.
[2017-02-28] MEDS: Pantoprazole 20 mg ER24 Tablet PO SCH (08:51)
[2017-02-28] MEDS: Sodium Chloride LOK Flush 10 mL Syringe IVFLUSH SCH ×6 (08:54→21:24)
--- NOTE | 2017-02-28 09:38 | NUR ---
Social Work: Initial Assessment / Readiness for d/c Data: Pt is an 86 y/o female admitted for ABD pain, chest pain. Pt's PCP is Dr Rico, pt's insurance is Medicare with [facility] supp. EMR reviewed. Readmit score is 1, low. CUSTOMER SERVICE TECHNICIAN met with pt and daughter at bedside with housekeeping associate, role explained. Pt states she lives in [facility] with her daughter in a single story home where pt uses a cane and owns a walker and w/c. Pt does not drive, reports hx of HH with unknown company, no hx of SNF, no LTC or VA benefits, and pt is not a caregiver. states that pt will receive pacemaker today and will likely d/c tomorrow. CUSTOMER SERVICE TECHNICIAN will continue to follow for possible HH need. Assessment: Pt who is independent at baseline, possible HH need. Plan: Pt will d/c home via POV when medically stable, likely tomorrow. CUSTOMER SERVICE TECHNICIAN will continue to follow to rule out possible HH need or other d/c planning needs. KRISTEN Solomon Addendum: 02/28/17 at 0941 by AWAIS ADAMS Amended: Links added.
--- NOTE | 2017-02-28 09:58 | NUR ---
Daughter signed SAMIR.
[2017-02-28] MEDS ORDERED: Bupivacaine-MPF 0.5% 30 mL Inj ONE (13:25)
[2017-02-28] MEDS ORDERED: Vancomycin 1,000mg/200 mL NS IV ONE ×3 (13:28→16:49)
--- NOTE | 2017-02-28 16:30 | NUR ---
Senior Accounting Associate Patient nepali speaking, a/o x 4, per interpretor. Patient denies pain, nausea or sob. Oob indep in room steady gait. Family at bedside throughout the shift. Right groin site soft, no hematoma or bruising. Bilat pedal pulses palpable. Patient npo since midnight for pacemaker placement. Patient down to blood and plasma laboratory assistant at 1630.
--- NOTE | 2017-02-28 19:47 | OP ---
[address] [address] OPERATIVE REPORT PATIENT: AMADO SHETTY : 1930 MR#: [id number] ADMIT: 02/25/2017 JOB ID: [id number] DATE OF SURGERY: 02/28/2017 PREOPERATIVE DIAGNOSIS(ES): 1. Sick sinus syndrome. 2. Syncope. POSTOPERATIVE DIAGNOSIS(ES): 1. Sick sinus syndrome. 2. Syncope. PROCEDURES PERFORMED: 1. Dual-chamber pacemaker implantation. 2. Left upper extremity venogram. 3. Fluoroscopy. SURGEON: Supervisor Laundry: Juanpablo Martini MD, electrophysiology attending. ELECTRO MECHANICAL TECHNICIAN: Giorgi Aguilar PA-C IMPLANTED DEVICES: 1. [employer] pulse generator, model number [id number]. 2. Right atrial lead [employer] 2088 TC, 46 cm, serial number [id number]. 3. RV lead [employer] 2088 TC, 52 cm, serial number [id number]. ANESTHESIA: Bolus dosing of Versed and fentanyl was provided for an appropriate level of sedation. INDICATION: The patient is a pleasant 86-year-old woman with a structurally normal heart, admitted with syncope and sinus pauses lasting up to 20 seconds. After discussion of the risks benefits of pacemaker implantation, she opted to proceed. PROCEDURAL DESCRIPTION: Following informed and signed consent, the patient was taken to the EP laboratory in a fasting nonsedated state, where she was prepped in the usual sterile fashion. The left infraclavicular region was infiltrated with 40 mL of a 50/50 mixture of bupivacaine and lidocaine. Once adequate anesthesia had been achieved, a 3 cm transverse incision was performed 2 cm below the clavicle. Dissection was carried down to the pectoralis fascia and a pocket was then fashioned using a combination of electrocautery and blunt dissection. Once adequate hemostasis had been achieved, and under venographic guidance, the left axillary vein was cannulated twice with a micropuncture needle to deploy two 0.035, 3 mm J guidewires. Over the first of these a 6-Uzbek tear-away sheath was advanced. Once the guidewire was removed, an active fixation lead was advanced to the RV outflow tract and ultimately the RV apex. The lead was affixed in position using the associated active fixation screw. It was connected to the external analyzer and appropriately sensed R waves, impedance, and capture threshold. It was checked to 10 V and there was no evidence of diaphragmatic stimulation. Attention was now paid to the right atrial lead. Over the previously placed J guidewire another 6-Uzbek tear-away sheath was advanced. Once the guidewire was removed, an active fixation lead was advanced to the right atrial appendage. It was affixed in position using the associated active fixation screw. The lead was connected to the external analyzer and demonstrated appropriately sensed P waves, impedance, and capture threshold. It was checked to 10 V and there was no evidence of diaphragmatic stimulation. Once the position and redundancy of both leads had been confirmed in multiple fluoroscopic views, the leads were anchored to the prepectoralis fascia using the associated anchoring sleeves and two heavy Ethibond sutures. The pocket was then copiously irrigated with antibiotic solution. The leads were connected to a generator. The generator system was placed into the pocket and was affixed to the floor of the pocket using 1-0 Ti-Cron suture. The incision was then closed with running layers of absorbable suture. The wound was dressed with skin adhesive and a small dressing. At the end of the procedure, all needle, sponge, and instrument counts were correct. COMPLICATIONS: None. ESTIMATED BLOOD LOSS: Negligible. DEVICE MEASURED DATA: 1. Right atrial lead 3.3 mV, 0.75 V at 0.4 msec, 480 ohms. 2. RV lead greater than 12 mV, 0.5 V at 0.4 msec, 480 ohms. 3. Final parameter was DDDR 60-130 beats per minute with VIP on. IMPRESSION: Successful dual-chamber pacemaker implantation. PLAN: 1. Stat portable chest x-ray. 2. PA and lateral chest x-ray in the morning. 3. IV Ancef through tomorrow. 4. Keflex x7 days. 5. Wound check in one week. ATTENDING STATEMENT: Juanpablo Martini MD, electrophysiology attending, was present for and supervised/performed all aspects of this procedure.
--- NOTE | 2017-02-28 20:18 | DRSVH ---
PROCEDURE: X-RAY CHEST ONE VIEW, PORTABLE ([id number]) INDICATIONS: For new leads placed TECHNIQUE: One view of the chest was acquired. COMPARISON: [facility], CR, XR CHEST 1VW (PORTABLE), 02/26/2017, 4:01. FINDINGS: Surgical changes and devices: A cardiac pacemaker is present with leads in expected position. There i s a stent in the area of aortic valve. Lungs and pleura: A linear lucency in the upper thorax is likely caused by a skinfold. No pleural ef fusions or pneumothorax. There is diffuse interstitial prominence. Mediastinum: Mediastinal contours appear normal. Heart size is normal. Bones and chest wall: No suspicious bony lesions. Overlying soft tissues appear unremarkable. IMPRESSION: Cardiac pacer leads in expected position. Dictated by: Vannessa Mack M.D. on 02/28/2017 at 20:15 Approved by: Vannessa Mack M.D. on 02/28/2017 at 20:16
[2017-02-28] MEDS: 0.9% Sodium Chloride 1,000 ML IV SCH (21:24)
--- NOTE | 2017-02-28 22:37 | PCM.PNMED ---
Subjective Date of Service Feb 28, 2017 Subjective Overnight Events: None Patient resting in bed comfortably in no acute distress. She does mention she's had a mild headache since waking up, had one episode of diarrhea last night and swelling in her right foot. She also felt a little nauseated yesterday, but this was relieved with antiemetic. She denies chest pain, shortness of breath, dizziness, abdominal pain, vomiting and constipation. Exam Vital Signs Vital Sign - Last Date Time Temp Pulse Resp B/P Pulse Ox O2 Delivery O2 Flow Rate FiO2 02/28/17 21:21 36.8 66 18 157/57 94 Room Air 02/27/17 08:01 2.00 Intake and Output 02/27/17 02/27/17 02/28/17 Cumulative From/Thru 15:00 23:00 07:00 02/25/17 02:05 - 02/28/17 05:26 Intake Total 480 ml 0 ml 4969 ml Output Total 250 ml 100 ml 2750 ml Balance 230 ml -100 ml 2219 ml Intake Oral 480 ml 0 ml 2676 ml IV Total 2293 ml Output Urine Total 250 ml 100 ml 2750 ml # Voids 2 9 # Bowel Movements 2 2 Exam General: No acute distress, well-developed, well-nourished, appropriately interactive HEENT: Normocephalic, atraumatic. Anicteric sclerae. Cardiovascular: Regular rate and rhythm with systolic murmur, no rubs, or gallops appreciated Pulmonary: Clear to auscultation bilaterally with no crackles, wheezes, or rhonchi. Normal respiratory effort with no use of accessory muscles. Abdomen: Bowel tones present. Soft, nontender, nondistended. Extremities: No lower extremity edema. Some tenderness in LE bilaterally Neurological: Cranial nerves grossly intact. Psychiatric: Normal mood and affect. Alert and oriented to person, place, and time. Lab and Diagnostics Laboratory Tests 72 Hours Test 02/26/17 03:20 02/26/17 22:39 02/26/17 23:59 02/27/17 01:10 White Blood Count 8.1th/mm3 (3.8-10.1) Red Blood Count 3.27mil/mm3 (3.90-5.20) Hemoglobin 10.6g/dL (12.0-15.6) Hematocrit 31.8% (35.0-46.0) Mean Corpuscular Volume 97.2fL (81-100) Mean Corpuscular Hemoglobin 32.4pg (27.0-35.0) Mean Corpuscular Hemoglobin Concent 33.3% (32.0-37.0) Red Cell Distribution Width 12.8% (12.3-15.4) Platelet Count 165bil/L (150-400) Neutrophils (%) (Auto) 58.3% (40-74) Lymphocytes (%) (Auto) 27.8% (14-46) Monocytes (%) (Auto) 12.0% (4-12) Eosinophils (%) (Auto) 1.6% (0-5) Basophils (%) (Auto) 0.2% (0-3) Sodium Level 142mEq/L (134-144) Potassium Level 3.7mEq/L (3.5-5.2) Chloride Level 107mEq/L (97-108) Carbon Dioxide Level 20mmol/L (18-29) Blood Urea Nitrogen 13mg/dL (8-27) Creatinine 0.69mg/dL (0.57-1.00) Estimat Glomerular Filtration Rate 116mL/min (>59) Glucose Level 114mg/dL (60-99) Calcium Level 8.7mg/dL (8.5-10.1) Triglycerides Level 147mg/dL (0-149) Cholesterol Level 100mg/dL (100-199) LDL Cholesterol, Calculated 31.600mg/dL (0-99) VLDL Cholesterol 29.400mg/dL HDL Cholesterol 39mg/dL (>39) Cholesterol/HDL Ratio 2.56 (0.0-4.4) Troponin T < 0.010ug/L (0.0-0.011) 0.010ug/L (0.0-0.011) Total Creatine Kinase 289U/L (21-215) 248U/L (21-215) Creatine Kinase MB 6.9ng/mL (0.0-5.3) 6.3ng/mL (0.0-5.3) Creatine Kinase MB % 2.4% (0.0-5.0) 2.5% (0.0-5.0) Test 02/27/17 05:20 02/28/17 03:00 White Blood Count 5.5th/mm3 (3.8-10.1) 6.4th/mm3 (3.8-10.1) Red Blood Count 3.20mil/mm3 (3.90-5.20) 3.27mil/mm3 (3.90-5.20) Hemoglobin 10.4g/dL (12.0-15.6) 10.6g/dL (12.0-15.6) Hematocrit 30.5% (35.0-46.0) 31.4% (35.0-46.0) Mean Corpuscular Volume 95.3fL (81-100) 96.0fL (81-100) Mean Corpuscular Hemoglobin 32.5pg (27.0-35.0) 32.4pg (27.0-35.0) Mean Corpuscular Hemoglobin Concent 34.1% (32.0-37.0) 33.8% (32.0-37.0) Red Cell Distribution Width 12.5% (12.3-15.4) 12.5% (12.3-15.4) Platelet Count 156bil/L (150-400) 156bil/L (150-400) Neutrophils (%) (Auto) 45.2% (40-74) 57.7% (40-74) Lymphocytes (%) (Auto) 38.5% (14-46) 27.6% (14-46) Monocytes (%) (Auto) 11.6% (4-12) 11.0% (4-12) Eosinophils (%) (Auto) 4.2% (0-5) 3.3% (0-5) Basophils (%) (Auto) 0.5% (0-3) 0.2% (0-3) Sodium Level 142mEq/L (134-144) 141mEq/L (134-144) Potassium Level 3.7mEq/L (3.5-5.2) 3.8mEq/L (3.5-5.2) Chloride Level 105mEq/L (97-108) 105mEq/L (97-108) Carbon Dioxide Level 25mmol/L (18-29) 23mmol/L (18-29) Blood Urea Nitrogen 10mg/dL (8-27) 11mg/dL (8-27) Creatinine 0.59mg/dL (0.57-1.00) 0.53mg/dL (0.57-1.00) Estimat Glomerular Filtration Rate 138mL/min (>59) 157mL/min (>59) Glucose Level 99mg/dL (60-99) 104mg/dL (60-99) Calcium Level 8.8mg/dL (8.5-10.1) 8.7mg/dL (8.5-10.1) Result Diagram: 02/28/17 0300 02/28/17 0300 Cardiac Echo Impressions Cardiac ECHO Interpretation Summary There is mild mitral annular calcification. Left ventricular wall thickness is borderline increased. The ejection fraction is estimated to be 60-65%. There is mild mitral regurgitation. There is a prosthetic aortic valve. There is mild perivalvular regurgitation around the prosthetic aortic valve. The prosthetic aortic valve function is normal. The right ventricular systolic pressure is estimated at 52 mmHg assuming a right atrial pressure of 8 mm Hg. Assessment & Plan Significant sinus pauses and junctional rhythm, intermittent - Patient having pauses up to twenty seconds. Seems to have improved as this has not been seen on tele for about 3 days. - Cardiology consult appreciated. - Pacemaker scheduled for today at 1 PM - Patient is NPO - Patient on Telemetry. Coronary artery disease (CAD). - History of RCA tubular stenosis about 50 - 60%. She has had some exertional chest pain - Cath 02/27/17: Right coronary artery is codominant in the sense that it gives off the PDA but most of the posterolateral circulation is through the circumflex. In its mid portion it has about a 30% to 40% lesion. This shows minimal interim progression since her last diagnostic angiogram. In summary, no significant epicardial coronary artery disease. There does not appear to be any pinching of the coronaries from the stent valve. Hypertension. - Continue amlodipine 5 mg and uptitrate as needed per cardiology consult - Blood pressures improved. - Metoprolol held Acute on Chronic Diastolic congestive heart failure. - Repeat Chest x-ray consistent with CHF - ECHO shows EF of 60-65% - Lasix 40 mg PO daily Acute onset of severe nausea and vomiting - stable - Likely a result of the spontaneous sinus pauses as patient is now asymptomatic and also has not had a reoccurrence of the pauses. - Reglan and Zofran PRN Chronic History of critical aortic stenosis s/p Transcatheter aortic valve replacement ( TAVR) 2016. Acetaminophen for mild pain when necessary. Bowel regimen Senna and MiraLAX scheduled and PRN Zofran when necessary for nausea and vomiting. Disposition: Likely discharge tomorrow depending on how patient is doing after pacemaker insertion. Pain Evaluation: Adequate Pain Control GI Prophylaxis: Proton Pump Inhibitor VTE Prophylaxis: Sub-Q Enoxaparin Resuscitation Status: CPR: Attempt Resuscitation Attending Statement The patient was seen and examined together with Dr. Pritchard on 02/28/2017 and I agree with the history, exam and plan as outlined in the note above. . Guru Pritchard DO Feb 28, 2017 22:37 Franklin Husain MD Mar 02, 2017 05:38
--- NOTE | 2017-03-01 01:15 | NUR ---
Post Pacemaker Pt arrived from [facility] to [id number] approx at 1999. Right pectoralis area (pacemaker site) covered with C/D/I dressing. Arm sling applied. Arm mobility restrictions discussed and reviewed with pt and daughter. Rose verbalizes understanding. No overt complications noted. Report given and care transferred to Leigha Vazquez RN.
[2017-03-01 03:12] VITALS: PULSE 62
[2017-03-01 03:37] VITALS: BP 161/63; PULSE 60; RESP 16; O2SAT 95
--- NOTE | 2017-03-01 03:57 | NUR ---
Nursing, NOC shift 0130: Assumed care of patient from Abu, RN. Patient resting comfortably, LUE new pacer, dressing is CDI. No hematoma, no bruising noted. + CSM checks, sling in place. Morphine 1mg IVP given x 1 for reported L upper chest discomfort, this was effective. NS at 100/hour. TELE: SB 54. Daughter overnight in room. CTM for changes.
[2017-03-01 04:02] LABS: BASOPHILS % (AUTO) 0.3 % (0-3); EOSINOPHILS % (AUTO) 4.6 % (0-5); MONOCYTES % (AUTO) 9.7 % (4-12); Mean Corpuscular Hemoglobin 32.4 pg (27.0-35.0); Mean Corpuscular Volume 95.5 fL (81-100); NEUTROPHILS % (AUTO) 58.2 % (40-74); Platelet Count 150 bil/L (150-400)
[2017-03-01] MEDS: 0.9% Sodium Chloride 1,000 ML IV SCH ×2 (05:19→14:13)
[2017-03-01] MEDS ORDERED: Vancomycin Inj 1,000 MG in IV Premix 1 EACH IV ONE (06:15)
[2017-03-01 08:00] VITALS: PULSE 60
[2017-03-01] MEDS: Sodium Chloride LOK Flush 10 mL Syringe IVFLUSH SCH ×2 (08:30→10:04)
[2017-03-01] MEDS ORDERED: CeFAZolin Inj 1 GM in IV Premix 1 EACH IV ONE (08:35)
[2017-03-01 09:16] VITALS: BP 151/72; PULSE 64; RESP 16; O2SAT 96
--- NOTE | 2017-03-01 09:48 | PCM.DIMED ---
Guru Pritchard DO 03/01/17 0945: Discharge Instructions Date of Service Mar 01, 2017 Dates of Hospitalization Feb 25, 2017 at 08:53 Discharge Diagnosis Discharge Diagnosis Sick sinus syndrome, Syncope Medication Instructions Additional med instructions Take Keflex 500 mg by mouth twice a day for 7 days total Diet Discharge Diet: No restrictions Activity Discharge Activity: Home Health Phyical Therapy Call your provider Call your provider for: Fever or Chills, Shortness of breath, Bleeding, Chest pain, Weakness (unilateral) Patient Instructions Patient Instructions Take Keflex 500 mg twice a day for 7 days total. Continue your home medications and review the with your primary care physician. Schedule appointment for a wound check appointment with cardiology in 1 week with your primary inweaver. Follow up with your primary care physician in 1-2 weeks Home health Physical therapy has been ordered for you. Follow-up Provider: Ani Rico MD Follow-up with PCP in: 1 week (1-2 weeks) Provider: Giuseppe Cueva MD Follow-up in: 1 week Attending's Statement 1-2 weeks Franklin Husain MD 03/02/17 0539: Discharge Instructions Attending's Statement The patient was seen and examined together with Dr. Pritchard on 03/01/2017 and I agree with the history, exam and plan as outlined in the note above. . Guru Pritchard DO Mar 01, 2017 09:45 Franklin Husain MD Mar 02, 2017 05:39
[2017-03-01] MEDS: Pantoprazole 20 mg ER24 Tablet PO SCH (10:04)
[2017-03-01] MEDS ORDERED: CEPH-512 PO (13:29)
--- NOTE | 2017-03-01 14:07 | NUR ---
Social Work: Discharge D: Pt discussed in am rounds. Pt is medically stable for discharge home with HH. Order placed for [employer] SALES REPRESENTATIVE to coordinate HH for discharge. F2F completed. [employer] SALES REPRESENTATIVE met with pt and daughter at bedside. Daughter provided translation services and declined seismic interpreter. HH CHOICE LIST PROVIDED. Their preference is for [facility]. [employer] SALES REPRESENTATIVE provided referral and access to Bruce Muhammad with [facility]. He will come to pickup F2F- original on chart. Pt and family express no concerns about discharge and have very supportive family who will assist the patient. Daughter will transport. A: Pt who is I at baseline. P: Pt to discharge home via POV with [facility] for PT. KRISTEN Patel
--- NOTE | 2017-03-01 15:48 | NUR ---
Discharge Pt discharged today at 15:40. Pt off floor via wheelchair with all belongings in the company of the nurse and daughter to private vehicle. Pt was provided with prescription, follow up appointments, and instruction for making a follow up appointment with PCP. Family had questions regarding Metoprolol and physician was consulted. Pt and family were instructed to hold metoprolol until discussed with cardiology at follow up. Education based on meds and condition were given. All questions answered, pt and family voiced understanding.
--- NOTE | 2017-03-01 17:16 | DRSVH ---
PROCEDURE: X-RAY CHEST, TWO VIEWS ([id number]) INDICATIONS: For new lead placement TECHNIQUE: 2 views of the chest were acquired. COMPARISON: [facility], CR, CHEST 2VW, 11/06/2013, 16:13. [facility], CR, XR CHEST 1VW (PORTABLE), 02/28/2017, 18:54. FINDINGS: Surgical changes and devices: Stable position of left cardiac pacer. Aortic stent graft present. Lungs and pleura: No pleural effusions or pneumothorax. Lungs are clear. Mediastinum: Mediastinal contours are normal. Heart size is normal. Bones and chest wall: No suspicious bony abnormalities. Soft tissues appear unremarkable. IMPRESSION: Stable chest post pacer placement. Dictated by: Vinny TOMPKINS Interpreted: Ibis Chou MD on 03/01/2017 at 10:42 Approved by: Ibis Chou M.D. on 03/01/2017 at 17:13
--- NOTE | 2017-03-01 21:09 | PCM.DC.MED ---
Discharge Summary Date of Service Mar 01, 2017 Dates of Hospitalization Date of Hospital Admission Feb 25, 2017 at 08:53 Date of Discharge: Mar 01, 2017 Providers: Admitting Physician: Franklin Husain MD Primary Care Physician: Ani Rico MD Attending Physician: Franklin Husain MD Veterinary Laboratory Diagnostician: Guru Pritchard DO Resident Senior: Elsi Segal DO Diagnosis at Time of Discharge Diagnosis at Time of Discharge Sick sinus syndrome, Syncope Consultations Cardiology Procedures XRay, CTs & MRIs 02/25/17 PROCEDURE: X-RAY CHEST ONE VIEW ([id number]) IMPRESSION: Bilateral reticular nodular infiltrates suspicious for pneumonia. Recommend clinical correlation. PROCEDURE: CT ABDOMEN AND PELVIS WITH CONTRAST ([id number]) IMPRESSION: 1. No imaging findings to explain left upper quadrant pain. 2. Small hiatal hernia. 3. Mild intrahepatic and extrahepatic biliary dilation may be related to cholecystectomy. Please correlate with serum bilirubin. 4. There is a 1.6 cm nodular density in the right cardiophrenic angle. Although this could be caused by round atelectasis, a mass cannot be excluded. Recommend short interval followup CT in 3 months. 02/26/17 PROCEDURE: X-RAY CHEST ONE VIEW, PORTABLE ([id number]) IMPRESSION: Probable chronic CHF pattern with interstitial prominence but no definite acute CHF at this time is found. Previously present aortic root and ascending aorta expandable stent again noted, without change from prior CT scanning in 2016. 02/28/17 PROCEDURE: X-RAY CHEST ONE VIEW, PORTABLE ([id number]) IMPRESSION: Cardiac pacer leads in expected position. 03/01/17 PROCEDURE: X-RAY CHEST, TWO VIEWS ([id number]) IMPRESSION: Stable chest post pacer placement. ECG 12 Lead Sinus rhythm . Left bundle branch block . When compared with ECG of 25-Feb-2017 4:30:38, . No significant change Cardiac Echo Impression Cardiac ECHO Interpretation Summary There is mild mitral annular calcification. Left ventricular wall thickness is borderline increased. The ejection fraction is estimated to be 60-65%. There is mild mitral regurgitation. There is a prosthetic aortic valve. There is mild perivalvular regurgitation around the prosthetic aortic valve. The prosthetic aortic valve function is normal. The right ventricular systolic pressure is estimated at 52 mmHg assuming a right atrial pressure of 8 mm Hg. Invasive Procedures 02/27/2017 PROCEDURE: Selective right and left coronary angiography. Aortogram. ANGIOGRAPHIC FINDINGS: 1. Transcatheter valve was noted in the aortic position. 2. Left main: No significant disease. 3. LAD free of any significant disease. 4. Circumflex codominant, free of any critical stenosis. 5. Right coronary artery is codominant in the sense that it gives off the PDA but most of the posterolateral circulation is through the circumflex. In its mid portion it has about a 30% to 40% lesion. This shows minimal interim progression since her last diagnostic angiogram. 6. Trivial AI was noted. We then attempted to do an aortogram but due to technical problems we were unsuccessful and the case was terminated. In summary, no significant epicardial coronary artery disease. There does not appear to be any pinching of the coronaries from the stent valve. I will be sending these pictures over to [facility] for review. I believe she had this procedure done with Dr. Puentes at [facility]. 02/28/17 PROCEDURES PERFORMED: 1. Dual-chamber pacemaker implantation. 2. Left upper extremity venogram. 3. Fluoroscopy. SURGEON: Operations Coordinator: Juanpablo Martini MD, electrophysiology attending. WEAPONS OFFICER: Giorgi Aguilar PA-C IMPLANTED DEVICES: 1. [employer] pulse generator, model number [id number]. 2. Right atrial lead [employer] 2088 TC, 46 cm, serial number [id number]. 3. RV lead [employer] 2088 TC, 52 cm, serial number [id number]. COMPLICATIONS: None. ESTIMATED BLOOD LOSS: Negligible. DEVICE MEASURED DATA: 1. Right atrial lead 3.3 mV, 0.75 V at 0.4 msec, 480 ohms. 2. RV lead greater than 12 mV, 0.5 V at 0.4 msec, 480 ohms. 3. Final parameter was DDDR 60-130 beats per minute with VIP on. IMPRESSION: Successful dual-chamber pacemaker implantation. PLAN: 1. Stat portable chest x-ray. 2. PA and lateral chest x-ray in the morning. 3. IV Ancef through tomorrow. 4. Keflex x7 days. 5. Wound check in one week. Brief History This is an 86-year-old female with history of TAVR, CAD admitted for chest pain to rule out acute coronary syndrome and found to have sick sinus syndrome. The patient's 12-lead EKG showed evidence of left bundle branch block with normal sinus rhythm at a rate of [address] scan of the abdomen and pelvis suggested some evidence of diverticulosis without evidence of diverticulitis. The patient was admitted to the hospital on remote tele and was found around 10:30 this morning to have intermittent episodes of prolonged sinus pauses with transient sinus bradycardia down into the 20s and 30s. Cardiac cath was relatively unremarkable. Patient then had pacemaker placement by Dr. Martini. Patient was subsequently discharged on 1 week of [facility]. Hospital Course Significant sinus pauses and junctional rhythm, intermittent - Likely Sick sinus syndrome - Patient having pauses up to twenty seconds. Not seen on Tele after day 1 of hospital stay. - Cardiology consult appreciated. - Pacemaker placed, xray confirmed placement Coronary artery disease (CAD). - History of RCA tubular stenosis about 50 - 60%. She has had some exertional chest pain - Cath 02/27/17: Right coronary artery is codominant in the sense that it gives off the PDA but most of the posterolateral circulation is through the circumflex. In its mid portion it has about a 30% to 40% lesion. This shows minimal interim progression since her last diagnostic angiogram. In summary, no significant epicardial coronary artery disease. There does not appear to be any pinching of the coronaries from the stent valve. Hypertension. - Resume home BP meds - Metoprolol held Acute on Chronic Diastolic congestive heart failure. - Repeat Chest x-ray consistent with CHF - ECHO showed EF of 60-65% Acute onset of severe nausea and vomiting - stable - Likely a result of the spontaneous sinus pauses as patient is now asymptomatic and also has not had a reoccurrence of the pauses. - Had Reglan and Zofran PRN Chronic History of critical aortic stenosis s/p Transcatheter aortic valve replacement ( TAVR) 2016. Exam Vital Signs (Last) Date Time Temp Pulse Resp B/P Pulse Ox O2 Delivery O2 Flow Rate FiO2 03/01/17 09:16 36.7 64 16 151/72 96 Room Air 02/27/17 08:01 2.00 Exam General: No acute distress, well-developed, well-nourished, appropriately interactive HEENT: Normocephalic, atraumatic. Anicteric sclerae. Cardiovascular: Regular rate and rhythm with systolic murmur, no rubs, or gallops appreciated Pulmonary: Clear to auscultation bilaterally with no crackles, wheezes, or rhonchi. Normal respiratory effort with no use of accessory muscles. Abdomen: Bowel tones present. Soft, nontender, nondistended. Extremities: No lower extremity edema. LE tender bilaterally Neurological: Cranial nerves grossly intact. Psychiatric: Normal mood and affect. Alert and oriented to person, place, and time. Test 02/25/17 03:17 02/25/17 03:50 02/25/17 04:00 02/25/17 04:07 Total Bilirubin 0.4mg/dL (0.0-1.2) Aspartate Amino Transf (AST/SGOT) 43U/L (0-50) Alanine Aminotransferase (ALT/SGPT) 27U/L (0-32) Alkaline Phosphatase 86U/L (25-165) Total Protein 8.0g/dL (6.4-8.4) Albumin 4.1g/dL (3.4-5.0) Lipase 50U/L (13-60) Prothrombin Time 11.0sec (8.1-12.5) Prothromb Time International Ratio 1.03ratio Lactic Acid Level 1.3mmol/L (0.4-2.0) Hold Mahmood Top Tube Received (Received) Urine Color Yellow (YELLOW) Urine Appearance Clear (CLEAR,HAZY) Urine pH 5.5 (5.0-8.0) Urine Specific [place] 1.020 (1.003-1.035) Urine Protein 30mg/dL (NEG,TRACE) Urine Glucose (UA) Negativemg/dL (NEGATIVE) Urine Ketones Negativemg/dL (NEGATIVE) Urine Occult Blood Negative (NEGATIVE) Urine Nitrite Negative (NEGATIVE) Urine Bilirubin Negative (NEGATIVE) Urine Urobilinogen Normalmg/dL (NORMAL) Urine Leukocyte Esterase Negative (NEGATIVE) Urine RBC 3-10/hpf (0-2) Urine WBC 0-5/hpf (0-5) Urine Epithelial Cells Occasional/hpf (NONE-MOD) Urine Crystals None seen (NONE SEEN) Urine Bacteria Moderate/hpf (NONE-FEW) Urine Hyaline Casts None/lpf (NONE) Urine Granular Casts None seen (NONE SEEN) Urine Waxy Casts None seen (NONE SEEN) Urine Red Blood Cell Casts None seen (NONE SEEN) Urine White Blood Cell Casts None seen (NONE SEEN) Urine Mucus None seen (None Seen) Urine Trichomonas None seen (NONE SEEN) Urine Yeast None (NONE SEEN) Urinalysis Comment None Urine Culture Reflexed Indicated Test 02/25/17 12:00 02/26/17 03:20 02/27/17 01:10 03/01/17 03:40 Hemoglobin A1c 5.9% (4.8-5.6) Magnesium Level 2.4mg/dL (1.6-2.6) Pro-B-Type Natriuretic Peptide 2028pg/mL (0-738) Procalcitonin 0.02ng/mL (0.00-0.08) Thyroid Stimulating Hormone (TSH) 0.526uIU/mL (0.450-4.500) Triglycerides Level 147mg/dL (0-149) Cholesterol Level 100mg/dL (100-199) LDL Cholesterol, Calculated 31.600mg/dL (0-99) VLDL Cholesterol 29.400mg/dL HDL Cholesterol 39mg/dL (>39) Cholesterol/HDL Ratio 2.56 (0.0-4.4) Total Creatine Kinase 248U/L (21-215) Creatine Kinase MB 6.3ng/mL (0.0-5.3) Creatine Kinase MB % 2.5% (0.0-5.0) Troponin T 0.010ug/L (0.0-0.011) White Blood Count 6.3th/mm3 (3.8-10.1) Red Blood Count 3.36mil/mm3 (3.90-5.20) Hemoglobin 10.9g/dL (12.0-15.6) Hematocrit 32.1% (35.0-46.0) Mean Corpuscular Volume 95.5fL (81-100) Mean Corpuscular Hemoglobin 32.4pg (27.0-35.0) Mean Corpuscular Hemoglobin Concent 34.0% (32.0-37.0) Red Cell Distribution Width 12.4% (12.3-15.4) Platelet Count 150bil/L (150-400) Neutrophils (%) (Auto) 58.2% (40-74) Lymphocytes (%) (Auto) 27.0% (14-46) Monocytes (%) (Auto) 9.7% (4-12) Eosinophils (%) (Auto) 4.6% (0-5) Basophils (%) (Auto) 0.3% (0-3) Sodium Level 142mEq/L (134-144) Potassium Level 3.4mEq/L (3.5-5.2) Chloride Level 104mEq/L (97-108) Carbon Dioxide Level 25mmol/L (18-29) Blood Urea Nitrogen 12mg/dL (8-27) Creatinine 0.59mg/dL (0.57-1.00) Estimat Glomerular Filtration Rate 138mL/min (>59) Glucose Level 105mg/dL (60-99) Calcium Level 8.7mg/dL (8.5-10.1) Discharge Medications Discharge Medications Amlodipine (Amlodipine) 5 Mg Tablet 5 MG PO BID (Reported) Aspirin (Aspirin) 81 Mg Tablet 81 MG PO DAILY (Reported) Atorvastatin Calcium (Atorvastatin Calcium) 80 Mg Tablet 0.5 TAB PO HS (Reported ) Cephalexin (Keflex) 500 Mg Capsule 500 MG PO BID Prescribed by: ELSI SEGAL DO Furosemide (Furosemide) 20 Mg Tab 20 MG PO DAILY (Reported) Lisinopril (Lisinopril) 10 Mg Tablet 10 MG PO BID (Reported) Metoprolol Succinate ER (Metoprolol Succinate ER) 25 Mg Tab.er.24h 25 MG PO BID (Reported) Pantoprazole DR (Pantoprazole DR) 20 Mg Tablet.dr 20 MG PO DAILY (Reported) Pnv No.122/Iron/Folic Acid ( Multi Tablet) 27 Mg Iron-800 Mcg Tablet 1 EACH PO DAILY (Reported) Potassium Chloride ER (Potassium Chloride ER) 10 Meq Tablet 10 MEQ PO DAILY ( Reported) As needed Diclofenac Gel (Diclofenac Gel) 100 Gm Tube 1 APPLIC TOPICAL BID PRN PRN For Pain (Reported) Nitroglycerin SL (Nitroglycerin SL) 0.4 Mg Tab.subl 0.4 MG SL DIRECTED PRN PRN For Chest Pain (Reported) Additional med instructions Take Keflex 500 mg by mouth twice a day for 7 days total Followup Plan Disposition: Home with Home health for physical therapy and nursing Follow-up plan Follow up with specifications checker in 1 week for wound check Follow up with PCP in 1-2 weeks Discharge Diet: No restrictions Discharge Activity: Home Health Phyical Therapy Patient Instructions Take Keflex 500 mg twice a day for 7 days total. Continue your home medications and review the with your primary care physician. Schedule appointment for a wound check appointment with cardiology in 1 week with your primary specifications checker. Follow up with your primary care physician in 1-2 weeks Home health Physical therapy has been ordered for you. Follow-up Provider: Ani Rico MD Follow-up with PCP in: 1 week (1-2 weeks) Provider: Giuseppe Cueva MD Follow-up in: 1 week Time spent Greater than 30 minutes was spent in preparation of discharge with greater than 50% of that time dedicated to patient counseling and coordination of care. . Attending Statement The patient was seen and examined together with Dr. Pritchard on 03/01/2017 and I agree with the history, exam and plan as outlined in the note above. . copies to: Ani Rico MD, Malik A DO Mar 01, 2017 21:09 Franklin Husain MD Mar 02, 2017 05:40
== END 2017-03-01 15:40 | disposition home health service (06) | DRG 242 ==
LOC: SED 01:59 → OBSVTOIN 08:53 → MPC 08:53 → PCC 11:48
PROVIDERS: ADMIT Internal Medicine; ATTEND Family Medicine
PROC: B2111ZZ Fluoroscopy of Multiple Coronary Arteries using Low Osmolar Contrast (ICD-10-PCS; 2017-02-27)
PROC: 4A023N7 Measurement of Cardiac Sampling and Pressure, Left Heart, Percutaneous Approach (ICD-10-PCS; 2017-02-27)
PROC: 0JH606Z Insertion of Pacemaker, Dual Chamber into Chest Subcutaneous Tissue and Fascia, Open Approach (ICD-10-PCS; principal; 2017-02-28)
PROC: 02H63JZ Insertion of Pacemaker Lead into Right Atrium, Percutaneous Approach (ICD-10-PCS; 2017-02-28)
PROC: 02HK3JZ Insertion of Pacemaker Lead into Right Ventricle, Percutaneous Approach (ICD-10-PCS; 2017-02-28)
DX: I49.5 Sick sinus syndrome (principal); I50.33 Acute on chronic diastolic (congestive) heart failure; I44.2 Atrioventricular block, complete; R11.2 Nausea with vomiting, unspecified; I48.0 Paroxysmal atrial fibrillation; I27.2 Other secondary pulmonary hypertension; I25.9 Chronic ischemic heart disease, unspecified; Z95.2 Presence of prosthetic heart valve; I44.7 Left bundle-branch block, unspecified; I25.10 Atherosclerotic heart disease of native coronary artery without angina pectoris; I10 Essential (primary) hypertension; I35.0 Nonrheumatic aortic (valve) stenosis; Z79.82 Long term (current) use of aspirin; E78.5 Hyperlipidemia, unspecified; I34.0 Nonrheumatic mitral (valve) insufficiency